=== PATIENT | female | born 1965 | race Hispanic/Latino ===

== ENCOUNTER 2020-04-04 18:54 | Inpatient (IN) | payer OTHER, MEDICARE ==
[2020-04-05] MEDS ORDERED: MELATONIN 5 MG TAB PO PRN (03:11)
[2020-04-05] MEDS: LORazepam 1 MG TAB PO SCH ×3 (03:16→21:24)
[2020-04-05] MEDS: LEVOTHYROXINE 25 MCG TAB PO SCH (06:30)
[2020-04-05] MEDS ORDERED: HYDROXYZINE 25 MG PO PRN (09:09)
--- NOTE | 2020-04-05 09:10 | Consultation ---
History of Present Illness - Reason for Consult Consult date: 04/05/20 - History of Present Illness 54-year-old female with past medical history of seizure disorder, hypothyroidism and bipolar disorder presents for inpatient psychiatric admission. Consultation is for medical management. Patient denies any recent seizure activity. No fever chills. No cough cold-like symptoms. No headache or visual disturbances. Past History Past Medical History: hypothyroidism, seizures Past Surgical History: No surgical history Social history: no significant social history Family history: no significant family history Medications and Allergies Allergies Allergy/AdvReac Type Severity Reaction Status Date / Time benztropine [From Cogentin] Allergy Unknown Verified 04/04/20 21:45 pseudoephedrine Allergy Unknown Verified 04/04/20 21:45 Antihistamines - Alkylamine AdvReac Unknown Verified 04/04/20 21:45 Home Medications Medication Instructions Recorded Confirmed Last Taken Type Pzigcr-[id number]-Koql 50-325-40 1 tab PO Q4H PRN 04/04/20 04/04/20 Unknown History Citracal + D Maximum Caplet 1 cap PO BID 04/04/20 04/04/20 Unknown History Docusate Sodium [Colace] 100 mg PO BID 04/04/20 04/04/20 Unknown History Ferrous Sulfate [Iron 325 MG] 325 mg PO DAILY 04/04/20 04/04/20 Unknown History LORazepam [Ativan] 1 mg PO BID 04/04/20 04/04/20 Unknown History Levothyroxine [Synthroid] 25 mcg PO QAM 04/04/20 04/04/20 Unknown History [place] Carbonate [[place] 450 mg PO DAILY 04/04/20 04/04/20 Unknown History Carbonate ER] Loratadine [Allergy] 10 mg PO DAILY 04/04/20 04/04/20 Unknown History Montelukast Sodium 10 mg PO DAILY 04/04/20 04/04/20 Unknown History Pantoprazole [Protonix TAB] 1 tab PO DAILY 04/04/20 04/04/20 Unknown History QUEtiapine [SEROquel] 200 mg PO HS 04/04/20 04/04/20 Unknown History Riboflavin (Vitamin B2) 400 mg PO DAILY 04/04/20 04/04/20 Unknown History SUMAtriptan [Imitrex] 5 mg NS UNK 04/04/20 04/04/20 Unknown History Temazepam [Restoril] 1 cap PO HS PRN 04/04/20 04/04/20 Unknown History Trimethoprim 100 mg PO Q48HR 04/04/20 04/04/20 Unknown History Zolpidem [Ambien] 10 mg PO QHS 04/04/20 04/04/20 Unknown History hydrOXYzine 25 mg PO Q6H PRN 04/04/20 04/04/20 Unknown History Active Meds: Active Medications Ferrous Sulfate (Feosol) 325 mg PO QDAY [facility] Levothyroxine Sodium (Synthroid) 25 mcg PO DAILY@0600 [facility] Last Admin: 04/05/20 06:30 Dose: 25 mcg Documented by: [place] Carbonate (Lithobid Er) 450 mg PO DAILY [facility] Lorazepam (Ativan) 1 mg PO BID [facility] Last Admin: 04/05/20 03:16 Dose: 1 mg Documented by: Melatonin (Melatonin) 5 mg PO QHS PRN PRN Reason: Sleep Review of Systems All systems: negative Exam - Constitutional Vitals: Temp Pulse Resp BP Pulse Ox 98.3 F 96 H 18 134/94 100 04/04/20 23:48 04/04/20 23:48 04/04/20 23:48 04/04/20 23:48 04/04/20 23:48 General appearance: Present: no acute distress, well-nourished - EENT Eyes: Present: PERRL ENT: hearing intact, clear oral mucosa - Neck Neck: Present: supple, normal ROM - Respiratory Respiratory effort: normal Respiratory: bilateral: CTA - Cardiovascular Heart Sounds: Present: S1 & S2. Absent: rub, click - Extremities Extremities: pulses symmetrical, No edema Peripheral Pulses: within normal limits - Abdominal General gastrointestinal: Present: soft, non-tender, non-distended, normal bowel sounds Female genitourinary: Present: normal - Integumentary Integumentary: Present: clear, warm, dry - Musculoskeletal Musculoskeletal: gait normal, strength equal bilaterally - Psychiatric Psychiatric: appropriate mood/affect, intact judgment & insight - Neurologic Neurologic: CNII-XII intact, moves all extremities Assessment and Plan Bipolar disorder. Per psychiatry. Seizure disorder. Continue AEDs and seizure precautions. Hypothyroidism. Check TSH and continue Synthroid
[2020-04-05] MEDS: LITHIUM CARBONATE ER 450 MG TAB PO SCH (09:25)
[2020-04-05] MEDS: FERROUS SULFATE 325 MG TAB PO SCH (09:25)
[2020-04-05] MEDS: DOCUSATE SODIUM 100 MG CAP PO SCH ×2 (09:27→21:24)
--- NOTE | 2020-04-05 09:36 | History and Physical Report ---
GP History & Physical - History of Present Illness Date of admission: 04/04/20 Date of Examination: 04/05/20 Reason for Admission: Impaired reality testing History of Present Illness: Tori Huntley is a 54y/o female patient who was admitted [facility] for manic state per admission note. I attempted to interview the patient this morning, she is in the dayroom awake. She makes poor eye contact. She is nonsensical, and could not connect her thoughts. When attempting to assess the patient's orientation she laughs out loud, and says, "hello" as if she is answering a telephone. She is responding to internal stimuli. She is talking and laughing out loud. The patient could not be engaged in the interview. PAST PSYCHIATRIC HISTORY: Unable to obtain PAST MEDICAL HISTORY: None reported Family Psychiatric History: None reported or documented SOCIAL HISTORY Unable to obtain REVIEW OF SYSTEMS Unable to obtain MENTAL STATUS EXAMINATION Unable to adequately assess Assessment Bipolar Disorder, Current Episode Manic, with Psychotic Features Treatment Plan Patient will be admitted for inpatient psychiatric evaluation, medication adjustment and close monitoring The patient's behavior, mood, sleep and appetite will be closely monitored. Patient will be enrolled in individual and group therapeutic sessions and encouraged to attend. Patient will be provided with a safe and structured environment. Patient's physical health needs will be addressed by the Hospitalist. Hospitalist Consulted Labs including CBC, CMP, Lipid profile and Hemoglobin A1C ordered Social Assessment will be completed and the Vacuum Applicator Operator will work with patient and family to ensure a suitable and safe disposition Medication adjustment will be made as clinically indicated Olanzapine 5mg po daily Olanzapine 2.5mg po q4h prn agitation Usual Wellness Congregation/Preservation: - Start Trazodone 50 mg po QHS - Start Melatonin 5 mg po QHS to promote circadian rhythm The patient agreed on the treatment plan, understood the risk, benefit, alternative treatment, potential consequence of no treatment, and gave informed consent. This certifies that Tori Huntley is a 54y/o female who was admitted for Bipolar Disorder, with Psychotic Features Estimated period of time patient will need to remain in the hospital: (7) Outpatient treatment upon discharge Legal Status: Voluntary Reaction to Hospitalization: Accepting Medications and Allergies Allergies Allergy/AdvReac Type Severity Reaction Status Date / Time benztropine [From Cogentin] Allergy Unknown Verified 04/04/20 21:45 pseudoephedrine Allergy Unknown Verified 04/04/20 21:45 Antihistamines - Alkylamine AdvReac Unknown Verified 04/04/20 21:45 Home Medications Medication Instructions Recorded Confirmed Last Taken Type Daonnj-Qtwkflzw-Sliq 50-325-40 1 tab PO Q4H PRN 04/04/20 04/04/20 Unknown History Citracal + D Maximum Caplet 1 cap PO BID 04/04/20 04/04/20 Unknown History Docusate Sodium [Colace] 100 mg PO BID 04/04/20 04/04/20 Unknown History Ferrous Sulfate [Iron 325 MG] 325 mg PO DAILY 04/04/20 04/04/20 Unknown History LORazepam [Ativan] 1 mg PO BID 04/04/20 04/04/20 Unknown History Levothyroxine [Synthroid] 25 mcg PO QAM 04/04/20 04/04/20 Unknown History [place] Carbonate [[place] 450 mg PO DAILY 04/04/20 04/04/20 Unknown History Carbonate ER] Loratadine [Allergy] 10 mg PO DAILY 04/04/20 04/04/20 Unknown History Montelukast Sodium 10 mg PO DAILY 04/04/20 04/04/20 Unknown History Pantoprazole [Protonix TAB] 1 tab PO DAILY 04/04/20 04/04/20 Unknown History QUEtiapine [SEROquel] 200 mg PO HS 04/04/20 04/04/20 Unknown History Riboflavin (Vitamin B2) 400 mg PO DAILY 04/04/20 04/04/20 Unknown History SUMAtriptan [Imitrex] 5 mg NS UNK 04/04/20 04/04/20 Unknown History Temazepam [Restoril] 1 cap PO HS PRN 04/04/20 04/04/20 Unknown History Trimethoprim 100 mg PO Q48HR 04/04/20 04/04/20 Unknown History Zolpidem [Ambien] 10 mg PO QHS 04/04/20 04/04/20 Unknown History hydrOXYzine 25 mg PO Q6H PRN 04/04/20 04/04/20 Unknown History Active Meds: Active Medications Docusate Sodium (Colace) 100 mg PO BID [facility] Last Admin: 04/05/20 09:27 Dose: 100 mg Documented by: Ferrous Sulfate (Feosol) 325 mg PO DAILY [facility] Last Admin: 04/05/20 09:25 Dose: 325 mg Documented by: Levothyroxine Sodium (Synthroid) 25 mcg PO DAILY@0600 [facility] Last Admin: 04/05/20 06:30 Dose: 25 mcg Documented by: [place] Carbonate (Lithobid Er) 450 mg PO DAILY [facility] Last Admin: 04/05/20 09:25 Dose: 450 mg Documented by: Lorazepam (Ativan) 1 mg PO BID [facility] Last Admin: 04/05/20 09:25 Dose: 1 mg Documented by: Melatonin (Melatonin) 5 mg PO QHS PRN PRN Reason: Sleep Miscellaneous Medication (Hydroxyzine) 25 mg PO Q6H PRN PRN Reason: Anxiety Miscellaneous Medication (Loratadine [Allergy]) 10 mg PO DAILY [facility] Miscellaneous Medication (Montelukast Sodium) 10 mg PO DAILY [facility] Miscellaneous Medication (Zolpidem) 10 mg PO QHS [facility] Pantoprazole Sodium (Protonix) 40 mg PO DAILY [facility] Temazepam (Restoril) 15 mg PO HS PRN PRN Reason: Sleep Results - Results Labs/Vitals: Laboratory Last Values POC Glucose 97 (70-105) 04/05/20 07:00 Last Vital Signs Temp 98.0 F 04/05/20 07:46 Pulse 93 H 04/05/20 07:46 Resp 18 04/05/20 07:46 BP 122/78 04/05/20 07:46 Pulse Ox 98 04/05/20 07:46 Physical Examination - Constitutional Vitals: Vital Signs Temp Pulse Resp BP Pulse Ox 98.0 F 93 H 18 122/78 98 04/05/20 07:46 04/05/20 07:46 04/05/20 07:46 04/05/20 07:46 04/05/20 07:46 Temperature -Last 24 Hours Temperature 98.0 F Temperature 98.3 F Mental Status Exam - Vital signs Last Vital Signs Temp 98.0 F 04/05/20 07:46 Pulse 93 H 04/05/20 07:46 Resp 18 04/05/20 07:46 BP 122/78 04/05/20 07:46 Pulse Ox 98 04/05/20 07:46 Physician Certification - Certification Statement Physician Certification Statement: This is an acknowledgement statement that TORI HUNTLEY is a 54 year old F who requires inpatient psychiatric admission for treatment which could reasonably be expected to improve the patient's condition for Estimated period of time patient will need to remain in the hospital: [ ] Plan for post-hospital care: [ ]
[2020-04-05] MEDS ORDERED: LEVOTHYROXINE 25 MCG TAB PO SCH (10:00)
[2020-04-05] MEDS ORDERED: FERROUS SULFATE 325 MG TAB PO SCH (10:00)
[2020-04-05] MEDS ORDERED: LORazepam 1 MG TAB PO SCH (10:00)
[2020-04-05] MEDS ORDERED: NON-FORMULARY EACH (Montelukast Sodium 10 MG) PO SCH (10:00)
[2020-04-05] MEDS ORDERED: [UNRECOGNIZED DRUG - REMARK] PO SCH (10:00)
[2020-04-05] MEDS: PANTOPRAZOLE 40 MG TAB PO SCH (10:57)
[2020-04-05] MEDS ORDERED: CETIRIZINE 10 MG TAB PO SCH (12:00)
[2020-04-05] MEDS ORDERED: hydrOXYzine PAMOATE 25 MG CAP PO PRN (12:00)
[2020-04-05] MEDS: MONTELUKAST 10 MG TAB PO SCH (13:15)
[2020-04-05] MEDS: ZOLPIDEM 5 MG TAB PO SCH (21:24)
[2020-04-05 21:34] LABS: Basophils % (Auto) 0.3 % (0.0-1.8); Eosinophils # (Auto) 0.2 K/mm3 (0.0-0.4); Eosinophils % (Auto) 2.2 % (0.0-4.3); Hematocrit 43.8 % (30.3-42.9); Hemoglobin 14.5 gm/dl (10.1-14.3); Lymphocytes # (Auto) 1.5 K/mm3 (1.2-5.4); Lymphocytes % (Auto) 17.6 % (13.4-35.0); Mean Corpuscular HGB Conc 33 % (30-34); Mean Corpuscular Volume 93 fl (79-97); Monocytes # (Auto) 0.6 K/mm3 (0.0-0.8); Monocytes % (Auto) 7.5 % (0.0-7.3); Platelet Count 210 K/mm3 (140-440); Red Cell Distribution Width 13.9 % (13.2-15.2)
[2020-04-05 21:48] LABS: Alanine Aminotransferase 18 units/L (7-56); Albumin 4.3 g/dL (3.9-5); BUN/Creatinine Ratio 8; Blood Urea Nitrogen 7 mg/dL (7-17); Calcium 10.8 mg/dL (8.4-10.2); Chol/HDL Ratio 2.25 %; HDL Cholesterol 79 mg/dL (40-59); Hemolysis Index 3; LDL Cholesterol,Direct 85 mg/dL (50-130)
[2020-04-05] MEDS ORDERED: TEMAZEPAM 15 MG CAP PO PRN (22:00)
[2020-04-05] MEDS ORDERED: NON-FORMULARY EACH (Zolpidem 10 MG) PO SCH (22:00)
[2020-04-06] MEDS: LEVOTHYROXINE 25 MCG TAB PO SCH (06:20)
--- NOTE | 2020-04-06 07:23 | Progress Note ---
Subjective Date of service: 04/06/20 Principal diagnosis: BIPOLAR 1 DISORDER MANIC Subjective Comment: Per Psych Nurse: Pt is alert to self, compliant with medication. Pt is easily irritable,she is very talkative, hyperverbal, very loud and laughing to herself, but re-directable and no aggressive behaviour. Prn vistaril 25mg po given for anxiety with little effect No acute distress, will continue to monitor. Psych Progress HPI Patient seen this morning, talking to self and responding to internal stimuli, kept talking about mummy, in a repetitive manner. Collateral: Spoke with Philippe, says has hx of Bipolar, tunnel vision with poor sights, has been having some declining mental or poor memory for a while now, sometimes talks to hersellf watching TV, sometimes needs assistance doing a few things but mostly independent in making her own meals and such. Reports she normally sees a psychiatrist outpt but his on vacation. Reason for continuing inpatient treatment: Patient lithium levels sub therapeutic, responding to internal stimuli. will restart home meds and observe. MENTAL STATUS EXAMINATION General Appearance and Behavior: Age appropriate, fair hygiene, wearing appropriate clothes, poor eye contact, uncooperative with questioning. Cooperation: Isolative Psychomotor Behavior: Psychomotor agitation Mood: na Affect and affective range: Labile Thought Process: Tangential, Illogical, and Loose associations Thought Content: Echolalia, obsessions. Speech: confused, and pressured. Intellectual Functioning: Fair Suicidal Ideation: na Homicidal Ideation: na Impulse Control: Impaired Insight and Judgment:Impaired Memory: n/a Attention:, Distractible, Divided attention impaired Orientation: Alert, confused Treatment Plan: Assessment and Plan - Patient Problems (1) Bipolar 1 disorder Current Visit: Yes Status: Acute Home meds restarted, lithium levels to be rechecked in a week. Patient will be admitted for inpatient psychiatric evaluation, medication adjustment and close monitoring The patient's behavior, mood, sleep and appetite will be closely monitored. Patient will be enrolled in individual and group therapeutic sessions and e ncouraged to attend. Patient will be provided with a safe and structured environment. Patient's physical health needs will be addressed by the Hospitalist. Hospitalist Consulted Labs including CBC, CMP, Lipid profile and Hemoglobin A1C ordered Social Assessment will be completed and the Can Line Examiner will work with patient and family to ensure a suitable and safe disposition Medication adjustment will be made as clinically indicated Olanzapine 5mg po daily Olanzapine 2.5mg po q4h prn agitation Usual Wellness Shinto/Preservation: - Start Trazodone 50 mg po QHS - Start Melatonin 5 mg po QHS to promote circadian rhythm The patient agreed on the treatment plan, understood the risk, benefit, alternative treatment, potential consequence of no treatment, and gave informed consent. Physician Certification - Certification Statement Physician Certification Statement: This is an acknowledgement statement that JUNE HUNTLEY is a 54 year old F who requires inpatient psychiatric admission for treatment which could reasonably be expected to improve the patient's condition for Estimated period of time patient will need to remain in the hospital: [6 ] Plan for post-hospital care: [ outpt] Assessment and Plan - Patient Problems (1) Bipolar 1 disorder Current Visit: Yes Status: Acute Medications and Allergies Allergies Allergy/AdvReac Type Severity Reaction Status Date / Time benztropine [From Cogentin] Allergy Unknown Verified 04/04/20 21:45 pseudoephedrine Allergy Unknown Verified 04/04/20 21:45 Antihistamines - Alkylamine AdvReac Unknown Verified 04/04/20 21:45 Home Medications Medication Instructions Recorded Confirmed Last Taken Type Eetpsk-Khwsceaa-Dlkm 50-325-40 1 tab PO Q4H PRN 04/04/20 04/04/20 Unknown History Citracal + D Maximum Caplet 1 cap PO BID 04/04/20 04/04/20 Unknown History Docusate Sodium [Colace] 100 mg PO BID 04/04/20 04/04/20 Unknown History Ferrous Sulfate [Iron 325 MG] 325 mg PO DAILY 04/04/20 04/04/20 Unknown History LORazepam [Ativan] 1 mg PO BID 04/04/20 04/04/20 Unknown History Levothyroxine [Synthroid] 25 mcg PO QAM 04/04/20 04/04/20 Unknown History [place] Carbonate [[place] 450 mg PO DAILY 04/04/20 04/04/20 Unknown History Carbonate ER] Loratadine [Allergy] 10 mg PO DAILY 04/04/20 04/04/20 Unknown History Montelukast Sodium 10 mg PO DAILY 04/04/20 04/04/20 Unknown History Pantoprazole [Protonix TAB] 1 tab PO DAILY 04/04/20 04/04/20 Unknown History QUEtiapine [SEROquel] 200 mg PO HS 04/04/20 04/04/20 Unknown History Riboflavin (Vitamin B2) 400 mg PO DAILY 04/04/20 04/04/20 Unknown History SUMAtriptan [Imitrex] 5 mg NS UNK 04/04/20 04/04/20 Unknown History Temazepam [Restoril] 1 cap PO HS PRN 04/04/20 04/04/20 Unknown History Trimethoprim 100 mg PO Q48HR 04/04/20 04/04/20 Unknown History Zolpidem [Ambien] 10 mg PO QHS 04/04/20 04/04/20 Unknown History hydrOXYzine 25 mg PO Q6H PRN 04/04/20 04/04/20 Unknown History Active Meds: Active Medications Cetirizine HCl (Cetirizine) 10 mg PO DAILY [facility] Last Admin: 04/05/20 13:15 Dose: 10 mg Documented by: Docusate Sodium (Colace) 100 mg PO BID [facility] Last Admin: 04/05/20 21:24 Dose: 100 mg Documented by: Ferrous Sulfate (Feosol) 325 mg PO DAILY [facility] Last Admin: 04/05/20 09:25 Dose: 325 mg Documented by: Hydroxyzine Pamoate (Vistaril) 25 mg PO Q6HR PRN PRN Reason: Anxiety Last Admin: 04/05/20 15:19 Dose: 25 mg Documented by: Levothyroxine Sodium (Synthroid) 25 mcg PO DAILY@0600 [facility] Last Admin: 04/05/20 06:30 Dose: 25 mcg Documented by: [place] Carbonate (Lithobid Er) 450 mg PO DAILY [facility] Last Admin: 04/05/20 09:25 Dose: 450 mg Documented by: Lorazepam (Ativan) 1 mg PO BID [facility] Last Admin: 04/05/20 21:24 Dose: 1 mg Documented by: Melatonin (Melatonin) 5 mg PO QHS PRN PRN Reason: Sleep Montelukast Sodium (Singulair) 10 mg PO DAILY [facility] Last Admin: 04/05/20 13:15 Dose: 10 mg Documented by: Olanzapine (Zyprexa) 5 mg PO QDAY [facility] Last Admin: 04/05/20 10:57 Dose: 5 mg Documented by: Olanzapine (Zyprexa) 2.5 mg PO Q4HR PRN PRN Reason: Agitation Last Admin: 04/05/20 20:03 Dose: 2.5 mg Documented by: Pantoprazole Sodium (Protonix) 40 mg PO DAILY [facility] Last Admin: 04/05/20 10:57 Dose: 40 mg Documented by: Temazepam (Restoril) 15 mg PO HS PRN PRN Reason: Sleep Zolpidem Tartrate (Ambien) 10 mg PO QHS [facility] Last Admin: 04/05/20 21:24 Dose: 10 mg Documented by: Results - Results Labs/Vitals: Laboratory Last Values WBC 8.3 K/mm3 (4.5-11.0) 04/05/20 21:14 RBC 4.70 M/mm3 (3.65-5.03) 04/05/20 21:14 Hgb 14.5 gm/dl (10.1-14.3) H 04/05/20 21:14 Hct 43.8 % (30.3-42.9) H 04/05/20 21:14 MCV 93 fl (79-97) 04/05/20 21:14 MCH 31 pg (28-32) 04/05/20 21:14 MCHC 33 % (30-34) 04/05/20 21:14 RDW 13.9 % (13.2-15.2) 04/05/20 21:14 Plt Count 210 K/mm3 (140-440) 04/05/20 21:14 Lymph % (Auto) 17.6 % (13.4-35.0) 04/05/20 21:14 [place] % (Auto) 7.5 % (0.0-7.3) H 04/05/20 21:14 Eos % (Auto) 2.2 % (0.0-4.3) 04/05/20 21:14 Baso % (Auto) 0.3 % (0.0-1.8) 04/05/20 21:14 Lymph # 1.5 K/mm3 (1.2-5.4) 04/05/20 21:14 [place] # 0.6 K/mm3 (0.0-0.8) 04/05/20 21:14 Eos # 0.2 K/mm3 (0.0-0.4) 04/05/20 21:14 Baso # 0.0 K/mm3 (0.0-0.1) 04/05/20 21:14 Seg Neutrophils % 72.4 % (40.0-70.0) H 04/05/20 21:14 Seg Neutrophils # 6.0 K/mm3 (1.8-7.7) 04/05/20 21:14 Sodium 141 mmol/L (137-145) 04/05/20 21:14 Potassium 3.8 mmol/L (3.6-5.0) 04/05/20 21:14 Chloride 103.1 mmol/L (98-107) 04/05/20 21:14 Carbon Dioxide 28 mmol/L (22-30) 04/05/20 21:14 Anion Gap 14 mmol/L 04/05/20 21:14 BUN 7 mg/dL (7-17) 04/05/20 21:14 Creatinine 0.9 mg/dL (0.7-1.2) 04/05/20 21:14 Estimated GFR > 60 ml/min 04/05/20 21:14 BUN/Creatinine Ratio 8 % 04/05/20 21:14 Glucose 121 mg/dL (65-100) H 04/05/20 21:14 POC Glucose 97 (70-105) 04/05/20 07:00 Hemoglobin A1c 4.6 % (4-6) 04/05/20 21:14 Calcium 10.8 mg/dL (8.4-10.2) H 04/05/20 21:14 Total Bilirubin 0.40 mg/dL (0.1-1.2) 04/05/20 21:14 AST 15 units/L (5-40) 04/05/20 21:14 ALT 18 units/L (7-56) 04/05/20 21:14 Alkaline Phosphatase 110 units/L (35-129) 04/05/20 21:14 Total Protein 7.1 g/dL (6.3-8.2) 04/05/20 21:14 Albumin 4.3 g/dL (3.9-5) 04/05/20 21:14 Albumin/Globulin Ratio 1.5 % 04/05/20 21:14 Triglycerides 113 mg/dL (2-149) 04/05/20 21:14 Cholesterol 178 mg/dL (50-199) 04/05/20 21:14 LDL Cholesterol Direct 85 mg/dL (50-130) 04/05/20 21:14 HDL Cholesterol 79 mg/dL (40-59) H 04/05/20 21:14 Cholesterol/HDL Ratio 2.25 % 04/05/20 21:14 TSH 2.490 mlU/mL (0.270-4.200) 04/05/20 21:14 Last Vital Signs Temp 99.4 F 04/05/20 20:37 Pulse 98 H 04/05/20 20:37 Resp 18 04/05/20 20:37 BP 128/81 04/05/20 20:37 Pulse Ox 98 04/05/20 20:37
[2020-04-06] MEDS ORDERED: ZIPRASIDONE MESYLATE 20 MG VIAL IM ONE (10:00)
[2020-04-06] MEDS ORDERED: LORazepam 2 MG/ML VIAL IM ONE (10:00)
[2020-04-06] MEDS ORDERED: WATER FOR INJ Sterile (PF) 10 ML IM ONE (10:00)
[2020-04-06] MEDS: DOCUSATE SODIUM 100 MG CAP PO SCH ×2 (10:57→21:55)
[2020-04-06] MEDS: LORazepam 1 MG TAB PO SCH ×2 (10:57→21:53)
[2020-04-06] MEDS: PANTOPRAZOLE 40 MG TAB PO SCH (10:57)
[2020-04-06] MEDS: LITHIUM CARBONATE ER 450 MG TAB PO SCH (10:57)
[2020-04-06] MEDS: FERROUS SULFATE 325 MG TAB PO SCH (10:58)
[2020-04-06] MEDS: MONTELUKAST 10 MG TAB PO SCH (10:58)
[2020-04-06] MEDS: ZOLPIDEM 5 MG TAB PO SCH (21:52)
[2020-04-06] MEDS ORDERED: QUEtiapine 200 MG TAB PO SCH (22:00)
[2020-04-06] MEDS ORDERED: QUEtiapine 25 MG TAB PO SCH (22:00)
[2020-04-07] MEDS: LEVOTHYROXINE 25 MCG TAB PO SCH (05:40)
--- NOTE | 2020-04-07 07:20 | Progress Note ---
Subjective Date of service: 04/07/20 Principal diagnosis: BIPOLAR 1 DISORDER MANIC Subjective Comment: Per Psych Nurse: Patient was restless with increased activity this evening. Her thoughts present as broken and she continues talking to herself. Her affect is anxious and mood fearful. Patient is given supportive care and reassurance. She was medication compliant and resistant with evening ADL care. Will continue to monitor patient for safety. Psych Progress HPI Patient is still manic, tangential, psychomotor agitation, talking to self and throwing things arround. Collateral: Spoke with Mum, reports pt therapeutic level usually between .4 and .5 for her augmented with other medicatons. Reports pt first manic episode is at age 19. Reason for continuing inpatient treatment: Patient lithium levels sub therapeutic, responding to internal stimuli. will restart home meds and observe. MENTAL STATUS EXAMINATION General Appearance and Behavior: Age appropriate, fair hygiene, wearing appropriate clothes, poor eye contact, uncooperative with questioning. Cooperation: Isolative Psychomotor Behavior: Psychomotor agitation Mood: na Affect and affective range: Labile Thought Process: Tangential, Illogical, and Loose associations Thought Content: Echolalia, obsessions. Speech: confused, and pressured. Intellectual Functioning: Fair Suicidal Ideation: na Homicidal Ideation: na Impulse Control: Impaired Insight and Judgment:Impaired Memory: n/a Attention:, Distractible, Divided attention impaired Orientation: Alert, confused Treatment Plan: Assessment and Plan - Patient Problems (1) Bipolar 1 disorder Current Visit: Yes Status: Acute Home meds restarted, lithium levels to be rechecked in a week. Patient will be admitted for inpatient psychiatric evaluation, medication adjustment and close monitoring The patient's behavior, mood, sleep and appetite will be closely monitored. Patient will be enrolled in individual and group therapeutic sessions and encouraged to attend. Patient will be provided with a safe and structured environment. Patient's physical health needs will be addressed by the Hospitalist. Hospitalist Consulted Labs including CBC, CMP, Lipid profile and Hemoglobin A1C ordered Social Assessment will be completed and the Unemployment Inspector will work with patient and family to ensure a suitable and safe disposition Medication adjustment will be made as clinically indicated Olanzapine 5mg po daily Olanzapine 2.5mg po q4h prn agitation Usual Wellness Zoroastrian/Preservation: - Start Trazodone 50 mg po QHS - Start Melatonin 5 mg po QHS to promote circadian rhythm The patient agreed on the treatment plan, understood the risk, benefit, alternative treatment, potential consequence of no treatment, and gave informed consent. Physician Certification - Certification Statement Physician Certification Statement: This is an acknowledgement statement that JUNE HUNTLEY is a 54 year old F who requires inpatient psychiatric admission for treatment which could reasonably be expected to improve the patient's condition for Estimated period of time patient will need to remain in the hospital: [5] Plan for post-hospital care: [ outpt] Assessment and Plan - Patient Problems (1) Bipolar 1 disorder Current Visit: Yes Status: Acute Medications and Allergies Allergies Allergy/AdvReac Type Severity Reaction Status Date / Time benztropine [From Cogentin] Allergy Unknown Verified 04/04/20 21:45 pseudoephedrine Allergy Unknown Verified 04/04/20 21:45 Antihistamines - Alkylamine AdvReac Unknown Verified 04/04/20 21:45 Home Medications Medication Instructions Recorded Confirmed Last Taken Type Ezstjm-Hnjpkzqc-Geyv 50-325-40 1 tab PO Q4H PRN 04/04/20 04/04/20 Unknown History Citracal + D Maximum Caplet 1 cap PO BID 04/04/20 04/04/20 Unknown History Docusate Sodium [Colace] 100 mg PO BID 04/04/20 04/04/20 Unknown History Ferrous Sulfate [Iron 325 MG] 325 mg PO DAILY 04/04/20 04/04/20 Unknown History LORazepam [Ativan] 1 mg PO BID 04/04/20 04/04/20 Unknown History Levothyroxine [Synthroid] 25 mcg PO QAM 04/04/20 04/04/20 Unknown History [place] Carbonate [[place] 450 mg PO DAILY 04/04/20 04/04/20 Unknown History Carbonate ER] Loratadine [Allergy] 10 mg PO DAILY 04/04/20 04/04/20 Unknown History Montelukast Sodium 10 mg PO DAILY 04/04/20 04/04/20 Unknown History Pantoprazole [Protonix TAB] 1 tab PO DAILY 04/04/20 04/04/20 Unknown History QUEtiapine [SEROquel] 200 mg PO HS 04/04/20 04/04/20 Unknown History Riboflavin (Vitamin B2) 400 mg PO DAILY 04/04/20 04/04/20 Unknown History SUMAtriptan [Imitrex] 5 mg NS UNK 04/04/20 04/04/20 Unknown History Temazepam [Restoril] 1 cap PO HS PRN 04/04/20 04/04/20 Unknown History Trimethoprim 100 mg PO Q48HR 04/04/20 04/04/20 Unknown History Zolpidem [Ambien] 10 mg PO QHS 04/04/20 04/04/20 Unknown History hydrOXYzine 25 mg PO Q6H PRN 04/04/20 04/04/20 Unknown History Active Meds: Active Medications Docusate Sodium (Colace) 100 mg PO BID [facility] Last Admin: 04/06/20 21:55 Dose: 100 mg Documented by: Ferrous Sulfate (Feosol) 325 mg PO DAILY [facility] Last Admin: 04/06/20 10:58 Dose: 325 mg Documented by: Hydroxyzine Pamoate (Vistaril) 25 mg PO Q6HR PRN PRN Reason: Anxiety Last Admin: 04/05/20 15:19 Dose: 25 mg Documented by: Levothyroxine Sodium (Synthroid) 25 mcg PO DAILY@0600 [facility] Last Admin: 04/07/20 05:40 Dose: 25 mcg Documented by: [place] Carbonate (Lithobid Er) 450 mg PO DAILY [facility] Last Admin: 04/06/20 10:57 Dose: 450 mg Documented by: Lorazepam (Ativan) 1 mg PO BID [facility] Last Admin: 04/06/20 21:53 Dose: 1 mg Documented by: Melatonin (Melatonin) 5 mg PO QHS PRN PRN Reason: Sleep Montelukast Sodium (Singulair) 10 mg PO DAILY [facility] Last Admin: 04/06/20 10:58 Dose: 10 mg Documented by: Olanzapine (Zyprexa) 2.5 mg PO Q4HR PRN PRN Reason: Agitation Last Admin: 04/05/20 20:03 Dose: 2.5 mg Documented by: Pantoprazole Sodium (Protonix) 40 mg PO DAILY [facility] Last Admin: 04/06/20 10:57 Dose: 40 mg Documented by: Quetiapine Fumarate (Seroquel) 200 mg PO QHS [facility] Last Admin: 04/06/20 21:54 Dose: 200 mg Documented by: Temazepam (Restoril) 15 mg PO HS PRN PRN Reason: Sleep Zolpidem Tartrate (Ambien) 10 mg PO QHS [facility] Last Admin: 04/06/20 21:52 Dose: 10 mg Documented by: Results - Results Labs/Vitals: Laboratory Last Values WBC 8.3 K/mm3 (4.5-11.0) 04/05/20 21:14 RBC 4.70 M/mm3 (3.65-5.03) 04/05/20 21:14 Hgb 14.5 gm/dl (10.1-14.3) H 04/05/20 21:14 Hct 43.8 % (30.3-42.9) H 04/05/20 21:14 MCV 93 fl (79-97) 04/05/20 21:14 MCH 31 pg (28-32) 04/05/20 21:14 MCHC 33 % (30-34) 04/05/20 21:14 RDW 13.9 % (13.2-15.2) 04/05/20 21:14 Plt Count 210 K/mm3 (140-440) 04/05/20 21:14 Lymph % (Auto) 17.6 % (13.4-35.0) 04/05/20 21:14 [place] % (Auto) 7.5 % (0.0-7.3) H 04/05/20 21:14 Eos % (Auto) 2.2 % (0.0-4.3) 04/05/20 21:14 Baso % (Auto) 0.3 % (0.0-1.8) 04/05/20 21:14 Lymph # 1.5 K/mm3 (1.2-5.4) 04/05/20 21:14 [place] # 0.6 K/mm3 (0.0-0.8) 04/05/20 21:14 Eos # 0.2 K/mm3 (0.0-0.4) 04/05/20 21:14 Baso # 0.0 K/mm3 (0.0-0.1) 04/05/20 21:14 Seg Neutrophils % 72.4 % (40.0-70.0) H 04/05/20 21:14 Seg Neutrophils # 6.0 K/mm3 (1.8-7.7) 04/05/20 21:14 Sodium 141 mmol/L (137-145) 04/05/20 21:14 Potassium 3.8 mmol/L (3.6-5.0) 04/05/20 21:14 Chloride 103.1 mmol/L (98-107) 04/05/20 21:14 Carbon Dioxide 28 mmol/L (22-30) 04/05/20 21:14 Anion Gap 14 mmol/L 04/05/20 21:14 BUN 7 mg/dL (7-17) 04/05/20 21:14 Creatinine 0.9 mg/dL (0.7-1.2) 04/05/20 21:14 Estimated GFR > 60 ml/min 04/05/20 21:14 BUN/Creatinine Ratio 8 % 04/05/20 21:14 Glucose 121 mg/dL (65-100) H 04/05/20 21:14 POC Glucose 97 (70-105) 04/05/20 07:00 Hemoglobin A1c 4.6 % (4-6) 04/05/20 21:14 Calcium 10.8 mg/dL (8.4-10.2) H 04/05/20 21:14 Total Bilirubin 0.40 mg/dL (0.1-1.2) 04/05/20 21:14 AST 15 units/L (5-40) 04/05/20 21:14 ALT 18 units/L (7-56) 04/05/20 21:14 Alkaline Phosphatase 110 units/L (35-129) 04/05/20 21:14 Total Protein 7.1 g/dL (6.3-8.2) 04/05/20 21:14 Albumin 4.3 g/dL (3.9-5) 04/05/20 21:14 Albumin/Globulin Ratio 1.5 % 04/05/20 21:14 Triglycerides 113 mg/dL (2-149) 04/05/20 21:14 Cholesterol 178 mg/dL (50-199) 04/05/20 21:14 LDL Cholesterol Direct 85 mg/dL (50-130) 04/05/20 21:14 HDL Cholesterol 79 mg/dL (40-59) H 04/05/20 21:14 Cholesterol/HDL Ratio 2.25 % 04/05/20 21:14 TSH 2.490 mlU/mL (0.270-4.200) 04/05/20 21:14 [place] 0.5 mmol/L (0.0-1.2) 04/06/20 07:48 Last Vital Signs Temp 98.2 F 04/06/20 19:21 Pulse 109 H 04/06/20 19:21 Resp 20 04/06/20 19:21 BP 126/86 04/06/20 19:21 Pulse Ox 96 04/06/20 19:21
[2020-04-07] MEDS: PANTOPRAZOLE 40 MG TAB PO SCH (09:26)
[2020-04-07] MEDS: FERROUS SULFATE 325 MG TAB PO SCH (09:26)
[2020-04-07] MEDS: DOCUSATE SODIUM 100 MG CAP PO SCH ×2 (09:26→21:46)
[2020-04-07] MEDS: MONTELUKAST 10 MG TAB PO SCH (09:26)
[2020-04-07] MEDS: LITHIUM CARBONATE ER 450 MG TAB PO SCH (09:26)
[2020-04-07] MEDS: LORazepam 1 MG TAB PO SCH ×2 (09:26→21:46)
[2020-04-07] MEDS ORDERED: ZIPRASIDONE MESYLATE 20 MG VIAL IM PRN (09:48)
[2020-04-07] MEDS ORDERED: LORazepam 2 MG/ML VIAL IM PRN (09:48)
[2020-04-07] MEDS: ZOLPIDEM 5 MG TAB PO SCH (21:46)
[2020-04-07] MEDS ORDERED: QUEtiapine 200 MG TAB PO SCH (22:00)
[2020-04-08] MEDS: LEVOTHYROXINE 25 MCG TAB PO SCH (05:53)
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
[2020-04-08] MEDS ORDERED: WATER FOR INJ Sterile (PF) 10 ML ONE (09:58)
[2020-04-08] MEDS: LORazepam 2 MG/ML VIAL IM PRN (10:06)
[2020-04-08] MEDS: ZIPRASIDONE MESYLATE 20 MG VIAL IM PRN (10:07)
[2020-04-08] MEDS: DOCUSATE SODIUM 100 MG CAP PO SCH ×2 (10:11→21:56)
[2020-04-08] MEDS: PANTOPRAZOLE 40 MG TAB PO SCH (10:11)
[2020-04-08] MEDS: LORazepam 1 MG TAB PO SCH ×2 (10:11→21:56)
[2020-04-08] MEDS: FERROUS SULFATE 325 MG TAB PO SCH (10:11)
[2020-04-08] MEDS: MONTELUKAST 10 MG TAB PO SCH (10:12)
[2020-04-08] MEDS: SUMAtriptan SUCCINATE 50 MG TAB PO PRN (10:12)
[2020-04-08] MEDS: LITHIUM CARBONATE ER 450 MG TAB PO SCH (10:12)
[2020-04-08] MEDS: QUEtiapine 200 MG TAB PO SCH (21:55)
[2020-04-08] MEDS: ZOLPIDEM 5 MG TAB PO SCH (21:56)
[2020-04-09] MEDS: LEVOTHYROXINE 25 MCG TAB PO SCH (05:45)
--- NOTE | 2020-04-09 07:20 | Progress Note ---
Subjective Date of service: 04/09/20 Principal diagnosis: BIPOLAR 1 DISORDER MANIC Subjective Comment: Per Psych Nurse: [id number] Pt. was very confused and disorganized in am, covering her face with blanket, sometimes throwing her hands in the air, requiring close monitoring. PRN Ativan and Geodon given IM at about 1011 am with good effect. Pt. less confuse this evening, pleasant, interacting with another pt and making some sense. Psych Progress HPI Patient seen this AM, her hair was packed and redressed in an appropriate manner, reviewed notes, nurses notes improvement in reduced disorganization. This AM, pt seen in activity in attempt to have her eat with other peers, Patient still exhibiting thought disorder, responds incoherently to question prompt but with less motor activity. Reason for continuing inpatient treatment: Mildly improved sense of well being this AM, with personal grooming of hair noticed. Pt still disorganized, incoherent and impaired with psychopathological interference as she is unable to apply meanings to question prompts and is tangential. Serquel was increased to 400mg yesterday, will continue to observe for mood stability and medication side effect tolerance. MENTAL STATUS EXAMINATION General Appearance and Behavior: Age appropriate, fair hygiene, wearing appropriate clothes, good eye contact, uncooperative with questioning. Cooperation: Isolative Psychomotor Behavior: Psychomotor agitation Mood: na Affect and affective range: Labile Thought Process: Tangential, Illogical, and Loose associations Thought Content: Illogical, obsessions. Speech: confused, and pressured. Intellectual Functioning: Fair Suicidal Ideation: na Homicidal Ideation: na Impulse Control: Impaired Insight and Judgment:Impaired Memory: n/a Attention:, Distractible, Divided attention impaired Orientation: Alert, confused Treatment Plan: Assessment and Plan - Patient Problems (1) Bipolar 1 disorder Current Visit: Yes Status: Acute Seroquel increased to 400 mg Home meds restarted, lithium levels to be rechecked in a week. Patient will be admitted for inpatient psychiatric evaluation, medication adjustment and close monitoring The patient's behavior, mood, sleep and appetite will be closely monitored. Patient will be enrolled in individual and group therapeutic sessions and encouraged to attend. Patient will be provided with a safe and structured environment. Patient's physical health needs will be addressed by the Hospitalist. Hospitalist Consulted Labs including CBC, CMP, Lipid profile and Hemoglobin A1C ordered Social Assessment will be completed and the Base Draw Operator will work with patient and family to ensure a suitable and safe disposition Medication adjustment will be made as clinically indicated Usual Wellness Islam/Preservation: - Start Trazodone 50 mg po QHS - Start Melatonin 5 mg po QHS to promote circadian rhythm The patient agreed on the treatment plan, understood the risk, benefit, alternative treatment, potential consequence of no treatment, and gave informed consent. Physician Certification - Certification Statement Physician Certification Statement: This is an acknowledgement statement that JUNE HUNTLEY is a 54 year old F who requires inpatient psychiatric admission for treatment which could reasonably be expected to improve the patient's condition for Estimated period of time patient will need to remain in the hospital: [4] Plan for post-hospital care: [outpt] Assessment and Plan - Patient Problems (1) Bipolar 1 disorder Current Visit: Yes Status: Acute Medications and Allergies Allergies Allergy/AdvReac Type Severity Reaction Status Date / Time benztropine [From Cogentin] Allergy Unknown Verified 04/04/20 21:45 pseudoephedrine Allergy Unknown Verified 04/04/20 21:45 Antihistamines - Alkylamine AdvReac Unknown Verified 04/04/20 21:45 Home Medications Medication Instructions Recorded Confirmed Last Taken Type [id number]-[id number] 50-325-40 1 tab PO Q4H PRN 04/04/20 04/04/20 Unknown History Citracal + D Maximum Caplet 1 cap PO BID 04/04/20 04/04/20 Unknown History Docusate Sodium [Colace] 100 mg PO BID 04/04/20 04/04/20 Unknown History Ferrous Sulfate [Iron 325 MG] 325 mg PO DAILY 04/04/20 04/04/20 Unknown History LORazepam [Ativan] 1 mg PO BID 04/04/20 04/04/20 Unknown History Levothyroxine [Synthroid] 25 mcg PO QAM 04/04/20 04/04/20 Unknown History [place] Carbonate [[place] 450 mg PO DAILY 04/04/20 04/04/20 Unknown History Carbonate ER] Loratadine [Allergy] 10 mg PO DAILY 04/04/20 04/04/20 Unknown History Montelukast Sodium 10 mg PO DAILY 04/04/20 04/04/20 Unknown History Pantoprazole [Protonix TAB] 1 tab PO DAILY 04/04/20 04/04/20 Unknown History QUEtiapine [SEROquel] 200 mg PO HS 04/04/20 04/04/20 Unknown History Riboflavin (Vitamin B2) 400 mg PO DAILY 04/04/20 04/04/20 Unknown History SUMAtriptan [Imitrex] 5 mg NS UNK 04/04/20 04/04/20 Unknown History Temazepam [Restoril] 1 cap PO HS PRN 04/04/20 04/04/20 Unknown History Trimethoprim 100 mg PO Q48HR 04/04/20 04/04/20 Unknown History Zolpidem [Ambien] 10 mg PO QHS 04/04/20 04/04/20 Unknown History hydrOXYzine 25 mg PO Q6H PRN 04/04/20 04/04/20 Unknown History Active Meds: Active Medications Docusate Sodium (Colace) 100 mg PO BID [facility] Last Admin: 04/08/20 21:56 Dose: 100 mg Documented by: Ferrous Sulfate (Feosol) 325 mg PO DAILY [facility] Last Admin: 04/08/20 10:11 Dose: 325 mg Documented by: Hydroxyzine Pamoate (Vistaril) 25 mg PO Q6HR PRN PRN Reason: Anxiety Last Admin: 04/05/20 15:19 Dose: 25 mg Documented by: Levothyroxine Sodium (Synthroid) 25 mcg PO DAILY@0600 [facility] Last Admin: 04/09/20 05:45 Dose: 25 mcg Documented by: [place] Carbonate (Lithobid Er) 450 mg PO DAILY [facility] Last Admin: 04/08/20 10:12 Dose: 450 mg Documented by: Lorazepam (Ativan) 1 mg PO BID [facility] Last Admin: 04/08/20 21:56 Dose: 1 mg Documented by: Lorazepam (Ativan) 1 mg IM Q4HR PRN PRN Reason: Agitation Last Admin: 04/08/20 10:06 Dose: 1 mg Documented by: Melatonin (Melatonin) 5 mg PO QHS PRN PRN Reason: Sleep Montelukast Sodium (Singulair) 10 mg PO DAILY [facility] Last Admin: 04/08/20 10:12 Dose: 10 mg Documented by: Pantoprazole Sodium (Protonix) 40 mg PO DAILY [facility] Last Admin: 04/08/20 10:11 Dose: 40 mg Documented by: Quetiapine Fumarate (Seroquel) 400 mg PO QHS [facility] Last Admin: 04/08/20 21:55 Dose: 400 mg Documented by: Sumatriptan Succinate (Imitrex) 50 mg PO Q2H PRN PRN Reason: Migraine Headache Last Admin: 04/08/20 10:12 Dose: 50 mg Documented by: Temazepam (Restoril) 15 mg PO HS PRN PRN Reason: Sleep Ziprasidone (Geodon) 15 mg IM Q4H PRN PRN Reason: Agitation Last Admin: 04/08/20 10:07 Dose: 15 mg Documented by: Zolpidem Tartrate (Ambien) 10 mg PO QHS [facility] Last Admin: 04/08/20 21:56 Dose: 10 mg Documented by: Results - Results Labs/Vitals: Laboratory Last Values WBC 8.3 K/mm3 (4.5-11.0) 04/05/20 21:14 RBC 4.70 M/mm3 (3.65-5.03) 04/05/20 21:14 Hgb 14.5 gm/dl (10.1-14.3) H 04/05/20 21:14 Hct 43.8 % (30.3-42.9) H 04/05/20 21:14 MCV 93 fl (79-97) 04/05/20 21:14 MCH 31 pg (28-32) 04/05/20 21:14 MCHC 33 % (30-34) 04/05/20 21:14 RDW 13.9 % (13.2-15.2) 04/05/20 21:14 Plt Count 210 K/mm3 (140-440) 04/05/20 21:14 Lymph % (Auto) 17.6 % (13.4-35.0) 04/05/20 21:14 [place] % (Auto) 7.5 % (0.0-7.3) H 04/05/20 21:14 Eos % (Auto) 2.2 % (0.0-4.3) 04/05/20 21:14 Baso % (Auto) 0.3 % (0.0-1.8) 04/05/20 21:14 Lymph # 1.5 K/mm3 (1.2-5.4) 04/05/20 21:14 [place] # 0.6 K/mm3 (0.0-0.8) 04/05/20 21:14 Eos # 0.2 K/mm3 (0.0-0.4) 04/05/20 21:14 Baso # 0.0 K/mm3 (0.0-0.1) 04/05/20 21:14 Seg Neutrophils % 72.4 % (40.0-70.0) H 04/05/20 21:14 Seg Neutrophils # 6.0 K/mm3 (1.8-7.7) 04/05/20 21:14 Sodium 141 mmol/L (137-145) 04/05/20 21:14 Potassium 3.8 mmol/L (3.6-5.0) 04/05/20 21:14 Chloride 103.1 mmol/L (98-107) 04/05/20 21:14 Carbon Dioxide 28 mmol/L (22-30) 04/05/20 21:14 Anion Gap 14 mmol/L 04/05/20 21:14 BUN 7 mg/dL (7-17) 04/05/20 21:14 Creatinine 0.9 mg/dL (0.7-1.2) 04/05/20 21:14 Estimated GFR > 60 ml/min 04/05/20 21:14 BUN/Creatinine Ratio 8 % 04/05/20 21:14 Glucose 121 mg/dL (65-100) H 04/05/20 21:14 POC Glucose 97 (70-105) 04/05/20 07:00 Hemoglobin A1c 4.6 % (4-6) 04/05/20 21:14 Calcium 10.8 mg/dL (8.4-10.2) H 04/05/20 21:14 Total Bilirubin 0.40 mg/dL (0.1-1.2) 04/05/20 21:14 AST 15 units/L (5-40) 04/05/20 21:14 ALT 18 units/L (7-56) 04/05/20 21:14 Alkaline Phosphatase 110 units/L (35-129) 04/05/20 21:14 Total Protein 7.1 g/dL (6.3-8.2) 04/05/20 21:14 Albumin 4.3 g/dL (3.9-5) 04/05/20 21:14 Albumin/Globulin Ratio 1.5 % 04/05/20 21:14 Triglycerides 113 mg/dL (2-149) 04/05/20 21:14 Cholesterol 178 mg/dL (50-199) 04/05/20 21:14 LDL Cholesterol Direct 85 mg/dL (50-130) 04/05/20 21:14 HDL Cholesterol 79 mg/dL (40-59) H 04/05/20 21:14 Cholesterol/HDL Ratio 2.25 % 04/05/20 21:14 TSH 2.490 mlU/mL (0.270-4.200) 04/05/20 21:14 [place] 0.5 mmol/L (0.0-1.2) 04/06/20 07:48 Last Vital Signs Temp 98.1 F 04/08/20 19:27 Pulse 115 H 04/08/20 19:27 Resp 18 04/08/20 19:27 BP 131/83 04/08/20 19:27 Pulse Ox 98 04/08/20 19:27
[2020-04-09] MEDS ORDERED: WATER FOR INJ Sterile (PF) 10 ML IM ONE ×2 (10:00)
[2020-04-09] MEDS: DOCUSATE SODIUM 100 MG CAP PO SCH ×2 (10:03→21:26)
[2020-04-09] MEDS: PANTOPRAZOLE 40 MG TAB PO SCH (10:03)
[2020-04-09] MEDS: MONTELUKAST 10 MG TAB PO SCH (10:04)
[2020-04-09] MEDS: FERROUS SULFATE 325 MG TAB PO SCH (10:04)
[2020-04-09] MEDS: LORazepam 1 MG TAB PO SCH ×2 (10:05→21:26)
[2020-04-09] MEDS: LITHIUM CARBONATE ER 450 MG TAB PO SCH (10:05)
[2020-04-09] MEDS: LORazepam 2 MG/ML VIAL IM PRN (10:07)
[2020-04-09] MEDS: ZIPRASIDONE MESYLATE 20 MG VIAL IM PRN (10:08)
[2020-04-09] MEDS: ZOLPIDEM 5 MG TAB PO SCH (21:26)
[2020-04-09] MEDS: QUEtiapine 200 MG TAB PO SCH (21:26)
[2020-04-09] MEDS ORDERED: WATER FOR INJ Sterile (PF) 10 ML ONE (21:40)
[2020-04-09] MEDS: ZIPRASIDONE MESYLATE 20 MG VIAL IM SCH (21:44)
[2020-04-10] MEDS: LEVOTHYROXINE 25 MCG TAB PO SCH (05:39)
--- NOTE | 2020-04-10 07:24 | Progress Note ---
Subjective Date of service: 04/10/20 Principal diagnosis: BIPOLAR 1 DISORDER MANIC Subjective Comment: Per Psych Nurse: pt spent her evening in activity room sitting quietly, calm and cooperative, alert and oriented to person, and place, no confusion noted, pt is able to express needs, she asked what medication she was been given; she questioned why she did not get her lithium, instructional writer explained to her that she gets lithium in the morning; she said that she takes lithium at bedtime, instructional writer advise her to let the MD to know, she verbalizes understanding, pt is medication compliant, consumed 100% of bedtime snack, denies si/hi, denies a/v/h, no complaints voiced, no distress noted, will continue to monitor Psych Progress HPI Patient seen this AM, seated in breakfast room, approachable and less disorganized, improved orientation and able to respond to question prompt. I asked patient where her glasses were because she would need it due to her tunneled vision, patient says even when she wears it, her vision still not that good and everyone laughed. Reason for continuing inpatient treatment: Patient responding to treatment and medication changes as observed by this provider and nursing note but not at [facility] yet per family. I will switch from IM geodon to oral PO tomorrow morning. MENTAL STATUS EXAMINATION General Appearance and Behavior: Age appropriate, improved hygiene, wearing appropriate clothes, fair eye contact, cooperative with questioning. Cooperation: cooperative but slighly withdrawn Psychomotor Behavior: Reduced Psychomotor agitation Mood: good Affect and affective range: congruent with mood Thought Process: Circumstitial, Illogical, and Loose associations Thought Content: Illogical, obsessions. Speech: normal volume rate and rythm Intellectual Functioning: Improving cognition Suicidal Ideation: na Homicidal Ideation: na Impulse Control: Impaired Insight and Judgment:Impaired Memory: n/a Attention:, Distractible, Divided attention impaired Orientation: Alert, confused Treatment Plan: Assessment and Plan - Patient Problems (1) Bipolar 1 disorder Current Visit: Yes Status: Acute Seroquel increased to 400 mg Patient on IM geodon 10, will switch to oral tomorrow. Home meds restarted, lithium levels to be rechecked in a week. Patient will be admitted for inpatient psychiatric evaluation, medication adjustment and close monitoring The patient's behavior, mood, sleep and appetite will be closely monitored. Patient will be enrolled in individual and group therapeutic sessions and encouraged to attend. Patient will be provided with a safe and structured environment. Patient's physical health needs will be addressed by the Hospitalist. Hospitalist Consulted Labs including CBC, CMP, Lipid profile and Hemoglobin A1C ordered Social Assessment will be completed and the [place] Department End Finder will work with patient and family to ensure a suitable and safe disposition Medication adjustment will be made as clinically indicated Usual Wellness Sabianist/Preservation: - Start Trazodone 50 mg po QHS - Start Melatonin 5 mg po QHS to promote circadian rhythm The patient agreed on the treatment plan, understood the risk, benefit, alternative treatment, potential consequence of no treatment, and gave informed consent. Physician Certification - Certification Statement Physician Certification Statement: This is an acknowledgement statement that JUNE HUNTLEY is a 54 year old F who requires inpatient psychiatric admission for treatment which could reasonably be expected to improve the patient's condition for Estimated period of time patient will need to remain in the hospital: [3] Plan for post-hospital care: [outpt] Assessment and Plan - Patient Problems (1) Bipolar 1 disorder Current Visit: Yes Status: Acute Medications and Allergies Allergies Allergy/AdvReac Type Severity Reaction Status Date / Time benztropine [From Cogentin] Allergy Unknown Verified 04/04/20 21:45 pseudoephedrine Allergy Unknown Verified 04/04/20 21:45 Antihistamines - Alkylamine AdvReac Unknown Verified 04/04/20 21:45 Home Medications Medication Instructions Recorded Confirmed Last Taken Type Bppxfg-Nhyjxrtw-Cxsg 50-325-40 1 tab PO Q4H PRN 04/04/20 04/04/20 Unknown History Citracal + D Maximum Caplet 1 cap PO BID 04/04/20 04/04/20 Unknown History Docusate Sodium [Colace] 100 mg PO BID 04/04/20 04/04/20 Unknown History Ferrous Sulfate [Iron 325 MG] 325 mg PO DAILY 04/04/20 04/04/20 Unknown History LORazepam [Ativan] 1 mg PO BID 04/04/20 04/04/20 Unknown History Levothyroxine [Synthroid] 25 mcg PO QAM 04/04/20 04/04/20 Unknown History [place] Carbonate [[place] 450 mg PO DAILY 04/04/20 04/04/20 Unknown History Carbonate ER] Loratadine [Allergy] 10 mg PO DAILY 04/04/20 04/04/20 Unknown History Montelukast Sodium 10 mg PO DAILY 04/04/20 04/04/20 Unknown History Pantoprazole [Protonix TAB] 1 tab PO DAILY 04/04/20 04/04/20 Unknown History QUEtiapine [SEROquel] 200 mg PO HS 04/04/20 04/04/20 Unknown History Riboflavin (Vitamin B2) 400 mg PO DAILY 04/04/20 04/04/20 Unknown History SUMAtriptan [Imitrex] 5 mg NS UNK 04/04/20 04/04/20 Unknown History Temazepam [Restoril] 1 cap PO HS PRN 04/04/20 04/04/20 Unknown History Trimethoprim 100 mg PO Q48HR 04/04/20 04/04/20 Unknown History Zolpidem [Ambien] 10 mg PO QHS 04/04/20 04/04/20 Unknown History hydrOXYzine 25 mg PO Q6H PRN 04/04/20 04/04/20 Unknown History Active Meds: Active Medications Docusate Sodium (Colace) 100 mg PO BID [facility] Last Admin: 04/09/20 21:26 Dose: 100 mg Documented by: Ferrous Sulfate (Feosol) 325 mg PO DAILY [facility] Last Admin: 04/09/20 10:04 Dose: 325 mg Documented by: Hydroxyzine Pamoate (Vistaril) 25 mg PO Q6HR PRN PRN Reason: Anxiety Last Admin: 04/05/20 15:19 Dose: 25 mg Documented by: Levothyroxine Sodium (Synthroid) 25 mcg PO DAILY@0600 [facility] Last Admin: 04/10/20 05:39 Dose: 25 mcg Documented by: [place] Carbonate (Lithobid Er) 450 mg PO DAILY [facility] Last Admin: 04/09/20 10:05 Dose: 450 mg Documented by: Lorazepam (Ativan) 1 mg PO BID [facility] Last Admin: 04/09/20 21:26 Dose: 1 mg Documented by: Lorazepam (Ativan) 1 mg IM Q4HR PRN PRN Reason: Agitation Last Admin: 04/09/20 10:07 Dose: 1 mg Documented by: Melatonin (Melatonin) 5 mg PO QHS PRN PRN Reason: Sleep Montelukast Sodium (Singulair) 10 mg PO DAILY [facility] Last Admin: 04/09/20 10:04 Dose: 10 mg Documented by: Pantoprazole Sodium (Protonix) 40 mg PO DAILY [facility] Last Admin: 04/09/20 10:03 Dose: 40 mg Documented by: Quetiapine Fumarate (Seroquel) 400 mg PO QHS [facility] Last Admin: 04/09/20 21:26 Dose: 400 mg Documented by: Sumatriptan Succinate (Imitrex) 50 mg PO Q2H PRN PRN Reason: Migraine Headache Last Admin: 04/08/20 10:12 Dose: 50 mg Documented by: Temazepam (Restoril) 15 mg PO HS PRN PRN Reason: Sleep Ziprasidone (Geodon) 10 mg IM BID [facility] Stop: 04/10/20 10:01 Last Admin: 04/09/20 21:44 Dose: 10 mg Documented by: Zolpidem Tartrate (Ambien) 10 mg PO QHS [facility] Last Admin: 04/09/20 21:26 Dose: 10 mg Documented by: Results - Results Labs/Vitals: Laboratory Last Values WBC 8.3 K/mm3 (4.5-11.0) 04/05/20 21:14 RBC 4.70 M/mm3 (3.65-5.03) 04/05/20 21:14 Hgb 14.5 gm/dl (10.1-14.3) H 04/05/20 21:14 Hct 43.8 % (30.3-42.9) H 04/05/20 21:14 MCV 93 fl (79-97) 04/05/20 21:14 MCH 31 pg (28-32) 04/05/20 21:14 MCHC 33 % (30-34) 04/05/20 21:14 RDW 13.9 % (13.2-15.2) 04/05/20 21:14 Plt Count 210 K/mm3 (140-440) 04/05/20 21:14 Lymph % (Auto) 17.6 % (13.4-35.0) 04/05/20 21:14 [place] % (Auto) 7.5 % (0.0-7.3) H 04/05/20 21:14 Eos % (Auto) 2.2 % (0.0-4.3) 04/05/20 21:14 Baso % (Auto) 0.3 % (0.0-1.8) 04/05/20 21:14 Lymph # 1.5 K/mm3 (1.2-5.4) 04/05/20 21:14 [place] # 0.6 K/mm3 (0.0-0.8) 04/05/20 21:14 Eos # 0.2 K/mm3 (0.0-0.4) 04/05/20 21:14 Baso # 0.0 K/mm3 (0.0-0.1) 04/05/20 21:14 Seg Neutrophils % 72.4 % (40.0-70.0) H 04/05/20 21:14 Seg Neutrophils # 6.0 K/mm3 (1.8-7.7) 04/05/20 21:14 Sodium 141 mmol/L (137-145) 04/05/20 21:14 Potassium 3.8 mmol/L (3.6-5.0) 04/05/20 21:14 Chloride 103.1 mmol/L (98-107) 04/05/20 21:14 Carbon Dioxide 28 mmol/L (22-30) 04/05/20 21:14 Anion Gap 14 mmol/L 04/05/20 21:14 BUN 7 mg/dL (7-17) 04/05/20 21:14 Creatinine 0.9 mg/dL (0.7-1.2) 04/05/20 21:14 Estimated GFR > 60 ml/min 04/05/20 21:14 BUN/Creatinine Ratio 8 % 04/05/20 21:14 Glucose 121 mg/dL (65-100) H 04/05/20 21:14 POC Glucose 97 (70-105) 04/05/20 07:00 Hemoglobin A1c 4.6 % (4-6) 04/05/20 21:14 Calcium 10.8 mg/dL (8.4-10.2) H 04/05/20 21:14 Total Bilirubin 0.40 mg/dL (0.1-1.2) 04/05/20 21:14 AST 15 units/L (5-40) 04/05/20 21:14 ALT 18 units/L (7-56) 04/05/20 21:14 Alkaline Phosphatase 110 units/L (35-129) 04/05/20 21:14 Total Protein 7.1 g/dL (6.3-8.2) 04/05/20 21:14 Albumin 4.3 g/dL (3.9-5) 04/05/20 21:14 Albumin/Globulin Ratio 1.5 % 04/05/20 21:14 Triglycerides 113 mg/dL (2-149) 04/05/20 21:14 Cholesterol 178 mg/dL (50-199) 04/05/20 21:14 LDL Cholesterol Direct 85 mg/dL (50-130) 04/05/20 21:14 HDL Cholesterol 79 mg/dL (40-59) H 04/05/20 21:14 Cholesterol/HDL Ratio 2.25 % 04/05/20 21:14 TSH 2.490 mlU/mL (0.270-4.200) 04/05/20 21:14 [place] 0.5 mmol/L (0.0-1.2) 04/06/20 07:48 Last Vital Signs Temp 98.4 F 04/09/20 20:12 Pulse 107 H 04/09/20 20:12 Resp 18 04/09/20 20:12 BP 130/90 04/09/20 20:12 Pulse Ox 99 04/09/20 20:12
[2020-04-10] MEDS: PANTOPRAZOLE 40 MG TAB PO SCH (10:08)
[2020-04-10] MEDS: ZIPRASIDONE MESYLATE 20 MG VIAL IM SCH (10:09)
[2020-04-10] MEDS: DOCUSATE SODIUM 100 MG CAP PO SCH ×2 (10:09→21:23)
[2020-04-10] MEDS: FERROUS SULFATE 325 MG TAB PO SCH (10:09)
[2020-04-10] MEDS: MONTELUKAST 10 MG TAB PO SCH (10:09)
[2020-04-10] MEDS: LORazepam 1 MG TAB PO SCH ×2 (10:10→21:23)
[2020-04-10] MEDS ORDERED: ZIPRASIDONE MESYLATE 20 MG VIAL IM SCH (20:00)
[2020-04-10] MEDS: QUEtiapine 200 MG TAB PO SCH (21:23)
[2020-04-10] MEDS: ZOLPIDEM 5 MG TAB PO SCH (21:23)
[2020-04-10] MEDS: LITHIUM CARBONATE ER 450 MG TAB PO SCH (21:53)
[2020-04-11] MEDS: LEVOTHYROXINE 25 MCG TAB PO SCH (06:22)
--- NOTE | 2020-04-11 08:18 | Progress Note ---
Subjective Date of service: 04/11/20 Principal diagnosis: BIPOLAR 1 DISORDER MANIC Subjective Comment: During my interview with the patient this morning, she is sitting in the dayroom, awake. She is a/o x 2. She says she feels "fine." She's doesn't recall why she was admitted into the hospital. She denies SI/HI, stating, "not at this time, but I was suicidal some time ago." She denies hallucinations at this time. The patient then starts looking at the t.v smiling, and states, "I don't know if that t.v is talking about me. I think it is." Reason for continuing inpatient treatment: The patient has improved significantly, and is responding well to treatment regimen. She at time shows some paranoia. Will continue to stabilize and plan for a safe discharge. MENTAL STATUS EXAMINATION General Appearance Behavior: cooperative, fidgety Mood: Fine Affect and affective range: congruent with mood Speech: normal pace and tone Thought Process: Circumstantial Thought Content: Suicidal Ideation: Denies Homicidal Ideation: Denies Hallucinations: Denies Delusional: Yes Insight and Judgment: Limited Memory/Cognition: Limited Assessment Bipolar Disorder PLAN Patient will be admitted for inpatient psychiatric evaluation, medication adjustment and close monitoring The patient's behavior, mood, sleep and appetite will be closely monitored. Patient will be enrolled in individual and group therapeutic sessions and encouraged to attend. Patient will be provided with a safe and structured environment. Patient's physical health needs will be addressed by the Hospitalist. Hospitalist Consulted Labs including CBC, CMP, Lipid profile and Hemoglobin A1C ordered Social Assessment will be completed and the Marine Operations Coordinator will work with patient and family to ensure a suitable and safe disposition Medication adjustment will be made as clinically indicated No changes today, restarted on home lithium yesterday Usual Wellness Zoroastrian/Preservation: - Start Trazodone 50 mg po QHS - Start Melatonin 5 mg po QHS to promote circadian rhythm The patient agreed on the treatment plan, understood the risk, benefit, alternative treatment, potential consequence of no treatment, and gave informed consent. Medications and Allergies Allergies Allergy/AdvReac Type Severity Reaction Status Date / Time benztropine [From Cogentin] Allergy Unknown Verified 04/04/20 21:45 pseudoephedrine Allergy Unknown Verified 04/04/20 21:45 Antihistamines - Alkylamine AdvReac Unknown Verified 04/04/20 21:45 Home Medications Medication Instructions Recorded Confirmed Last Taken Type Blgdrm-[id number]-Bctn 50-325-40 1 tab PO Q4H PRN 04/04/20 04/04/20 Unknown History Citracal + D Maximum Caplet 1 cap PO BID 04/04/20 04/04/20 Unknown History Docusate Sodium [Colace] 100 mg PO BID 04/04/20 04/04/20 Unknown History Ferrous Sulfate [Iron 325 MG] 325 mg PO DAILY 04/04/20 04/04/20 Unknown History LORazepam [Ativan] 1 mg PO BID 04/04/20 04/04/20 Unknown History Levothyroxine [Synthroid] 25 mcg PO QAM 04/04/20 04/04/20 Unknown History [place] Carbonate [[place] 450 mg PO DAILY 04/04/20 04/04/20 Unknown History Carbonate ER] Loratadine [Allergy] 10 mg PO DAILY 04/04/20 04/04/20 Unknown History Montelukast Sodium 10 mg PO DAILY 04/04/20 04/04/20 Unknown History Pantoprazole [Protonix TAB] 1 tab PO DAILY 04/04/20 04/04/20 Unknown History QUEtiapine [SEROquel] 200 mg PO HS 04/04/20 04/04/20 Unknown History Riboflavin (Vitamin B2) 400 mg PO DAILY 04/04/20 04/04/20 Unknown History SUMAtriptan [Imitrex] 5 mg NS UNK 04/04/20 04/04/20 Unknown History Temazepam [Restoril] 1 cap PO HS PRN 04/04/20 04/04/20 Unknown History Trimethoprim 100 mg PO Q48HR 04/04/20 04/04/20 Unknown History Zolpidem [Ambien] 10 mg PO QHS 04/04/20 04/04/20 Unknown History hydrOXYzine 25 mg PO Q6H PRN 04/04/20 04/04/20 Unknown History Active Meds: Active Medications Docusate Sodium (Colace) 100 mg PO BID [facility] Last Admin: 04/10/20 21:23 Dose: 100 mg Documented by: Ferrous Sulfate (Feosol) 325 mg PO DAILY [facility] Last Admin: 04/10/20 10:09 Dose: 325 mg Documented by: Hydroxyzine Pamoate (Vistaril) 25 mg PO Q6HR PRN PRN Reason: Anxiety Last Admin: 04/05/20 15:19 Dose: 25 mg Documented by: Levothyroxine Sodium (Synthroid) 25 mcg PO DAILY@0600 [facility] Last Admin: 04/11/20 06:22 Dose: 25 mcg Documented by: [place] Carbonate (Lithobid Er) 450 mg PO QHS [facility] Last Admin: 04/10/20 21:53 Dose: 450 mg Documented by: Lorazepam (Ativan) 1 mg PO BID [facility] Last Admin: 04/10/20 21:23 Dose: 1 mg Documented by: Lorazepam (Ativan) 1 mg IM Q4HR PRN PRN Reason: Agitation Last Admin: 04/09/20 10:07 Dose: 1 mg Documented by: Melatonin (Melatonin) 5 mg PO QHS PRN PRN Reason: Sleep Montelukast Sodium (Singulair) 10 mg PO DAILY [facility] Last Admin: 04/10/20 10:09 Dose: 10 mg Documented by: Pantoprazole Sodium (Protonix) 40 mg PO DAILY [facility] Last Admin: 04/10/20 10:08 Dose: 40 mg Documented by: Quetiapine Fumarate (Seroquel) 400 mg PO QHS [facility] Last Admin: 04/10/20 21:23 Dose: 400 mg Documented by: Sumatriptan Succinate (Imitrex) 50 mg PO Q2H PRN PRN Reason: Migraine Headache Last Admin: 04/08/20 10:12 Dose: 50 mg Documented by: Temazepam (Restoril) 15 mg PO HS PRN PRN Reason: Sleep Ziprasidone (Geodon) 10 mg IM ONCE [facility] Last Admin: 04/10/20 21:29 Dose: 10 mg Documented by: Zolpidem Tartrate (Ambien) 10 mg PO QHS [facility] Last Admin: 04/10/20 21:23 Dose: 10 mg Documented by: Results - Results Labs/Vitals: Laboratory Last Values WBC 8.3 K/mm3 (4.5-11.0) 04/05/20 21:14 RBC 4.70 M/mm3 (3.65-5.03) 04/05/20 21:14 Hgb 14.5 gm/dl (10.1-14.3) H 04/05/20 21:14 Hct 43.8 % (30.3-42.9) H 04/05/20 21:14 MCV 93 fl (79-97) 04/05/20 21:14 MCH 31 pg (28-32) 04/05/20 21:14 MCHC 33 % (30-34) 04/05/20 21:14 RDW 13.9 % (13.2-15.2) 04/05/20 21:14 Plt Count 210 K/mm3 (140-440) 04/05/20 21:14 Lymph % (Auto) 17.6 % (13.4-35.0) 04/05/20 21:14 [place] % (Auto) 7.5 % (0.0-7.3) H 04/05/20 21:14 Eos % (Auto) 2.2 % (0.0-4.3) 04/05/20 21:14 Baso % (Auto) 0.3 % (0.0-1.8) 04/05/20 21:14 Lymph # 1.5 K/mm3 (1.2-5.4) 04/05/20 21:14 [place] # 0.6 K/mm3 (0.0-0.8) 04/05/20 21:14 Eos # 0.2 K/mm3 (0.0-0.4) 04/05/20 21:14 Baso # 0.0 K/mm3 (0.0-0.1) 04/05/20 21:14 Seg Neutrophils % 72.4 % (40.0-70.0) H 04/05/20 21:14 Seg Neutrophils # 6.0 K/mm3 (1.8-7.7) 04/05/20 21:14 Sodium 141 mmol/L (137-145) 04/05/20 21:14 Potassium 3.8 mmol/L (3.6-5.0) 04/05/20 21:14 Chloride 103.1 mmol/L (98-107) 04/05/20 21:14 Carbon Dioxide 28 mmol/L (22-30) 04/05/20 21:14 Anion Gap 14 mmol/L 04/05/20 21:14 BUN 7 mg/dL (7-17) 04/05/20 21:14 Creatinine 0.9 mg/dL (0.7-1.2) 04/05/20 21:14 Estimated GFR > 60 ml/min 04/05/20 21:14 BUN/Creatinine Ratio 8 % 04/05/20 21:14 Glucose 121 mg/dL (65-100) H 04/05/20 21:14 POC Glucose 97 (70-105) 04/05/20 07:00 Hemoglobin A1c 4.6 % (4-6) 04/05/20 21:14 Calcium 10.8 mg/dL (8.4-10.2) H 04/05/20 21:14 Total Bilirubin 0.40 mg/dL (0.1-1.2) 04/05/20 21:14 AST 15 units/L (5-40) 04/05/20 21:14 ALT 18 units/L (7-56) 04/05/20 21:14 Alkaline Phosphatase 110 units/L (35-129) 04/05/20 21:14 Total Protein 7.1 g/dL (6.3-8.2) 04/05/20 21:14 Albumin 4.3 g/dL (3.9-5) 04/05/20 21:14 Albumin/Globulin Ratio 1.5 % 04/05/20 21:14 Triglycerides 113 mg/dL (2-149) 04/05/20 21:14 Cholesterol 178 mg/dL (50-199) 04/05/20 21:14 LDL Cholesterol Direct 85 mg/dL (50-130) 04/05/20 21:14 HDL Cholesterol 79 mg/dL (40-59) H 04/05/20 21:14 Cholesterol/HDL Ratio 2.25 % 04/05/20 21:14 TSH 2.490 mlU/mL (0.270-4.200) 04/05/20 21:14 [place] 0.5 mmol/L (0.0-1.2) 04/06/20 07:48 Last Vital Signs Temp 97.5 F L 04/10/20 19:01 Pulse 121 H 04/10/20 19:01 Resp 22 04/10/20 19:01 BP 122/80 04/10/20 19:01 Pulse Ox 100 04/10/20 19:01
[2020-04-11] MEDS: MONTELUKAST 10 MG TAB PO SCH (10:00)
[2020-04-11] MEDS: LORazepam 1 MG TAB PO SCH ×2 (10:00→22:19)
[2020-04-11] MEDS: FERROUS SULFATE 325 MG TAB PO SCH (10:00)
[2020-04-11] MEDS: PANTOPRAZOLE 40 MG TAB PO SCH (10:00)
[2020-04-11] MEDS: DOCUSATE SODIUM 100 MG CAP PO SCH ×2 (10:00→21:20)
[2020-04-11] MEDS: QUEtiapine 200 MG TAB PO SCH (21:20)
[2020-04-11] MEDS: ZOLPIDEM 5 MG TAB PO SCH (21:21)
[2020-04-11] MEDS: LITHIUM CARBONATE ER 450 MG TAB PO SCH (21:23)
[2020-04-12] MEDS: LEVOTHYROXINE 25 MCG TAB PO SCH (06:30)
--- NOTE | 2020-04-12 08:11 | Progress Note ---
Subjective Date of service: 04/12/20 Principal diagnosis: BIPOLAR 1 DISORDER MANIC Subjective Comment: The patient's medical record was reviewed and the patient's progress was discussed with the nursing staff. The nurse note states the patient received standing in front of the mirror combing her hair. A&OX3. Denies pain, SI or HI. Pt received call from mother and was so excited. No acute distress observed and none reported. During my interview with the patient this morning, she is sitting up in bed, awake. She verbalizes being "sleepy." She makes fair eye contact. She is calm and cooperative. The patient states her mood as "okay." She denies SI/HI or hallucinations of any kind. The patient asks me when was she going home. She becomes tearful and says, "I want to go home. I miss my son." She then says, "he's 16 and he has his license." Reason for continuing inpatient treatment: The patient has improved significantly, and is responding well to treatment regimen. She had a delusional episode yesterday, will continue to stabilize and plan for a safe discharge. MENTAL STATUS EXAMINATION General Appearance Behavior: calm and cooperative Mood: Okay Affect and affective range: Tearful at times Speech: normal pace and tone Thought Process: Goal directed Thought Content: Suicidal Ideation: Denies Homicidal Ideation: Denies Hallucinations: Denies Delusional: None elicited Insight and Judgment: Limited Memory/Cognition: Limited Assessment Bipolar Disorder PLAN Patient will be admitted for inpatient psychiatric evaluation, medication adju stment and close monitoring The patient's behavior, mood, sleep and appetite will be closely monitored. Patient will be enrolled in individual and group therapeutic sessions and encouraged to attend. Patient will be provided with a safe and structured environment. Patient's physical health needs will be addressed by the Hospitalist. Hospitalist Consulted Labs including CBC, CMP, Lipid profile and Hemoglobin A1C ordered Social Assessment will be completed and the Therapeutic Recreation Director will work with patient and family to ensure a suitable and safe disposition Medication adjustment will be made as clinically indicated No changes today Usual Wellness Jainism/Preservation: - Start Trazodone 50 mg po QHS - Start Melatonin 5 mg po QHS to promote circadian rhythm The patient agreed on the treatment plan, understood the risk, benefit, alternative treatment, potential consequence of no treatment, and gave informed consent. Medications and Allergies Allergies Allergy/AdvReac Type Severity Reaction Status Date / Time benztropine [From Cogentin] Allergy Unknown Verified 04/04/20 21:45 pseudoephedrine Allergy Unknown Verified 04/04/20 21:45 Antihistamines - Alkylamine AdvReac Unknown Verified 04/04/20 21:45 Home Medications Medication Instructions Recorded Confirmed Last Taken Type Yxzlhv-Smddmrrh-Yyaz 50-325-40 1 tab PO Q4H PRN 04/04/20 04/04/20 Unknown History Citracal + D Maximum Caplet 1 cap PO BID 04/04/20 04/04/20 Unknown History Docusate Sodium [Colace] 100 mg PO BID 04/04/20 04/04/20 Unknown History Ferrous Sulfate [Iron 325 MG] 325 mg PO DAILY 04/04/20 04/04/20 Unknown History LORazepam [Ativan] 1 mg PO BID 04/04/20 04/04/20 Unknown History Levothyroxine [Synthroid] 25 mcg PO QAM 04/04/20 04/04/20 Unknown History [place] Carbonate [[place] 450 mg PO DAILY 04/04/20 04/04/20 Unknown History Carbonate ER] Loratadine [Allergy] 10 mg PO DAILY 04/04/20 04/04/20 Unknown History Montelukast Sodium 10 mg PO DAILY 04/04/20 04/04/20 Unknown History Pantoprazole [Protonix TAB] 1 tab PO DAILY 04/04/20 04/04/20 Unknown History QUEtiapine [SEROquel] 200 mg PO HS 04/04/20 04/04/20 Unknown History Riboflavin (Vitamin B2) 400 mg PO DAILY 04/04/20 04/04/20 Unknown History SUMAtriptan [Imitrex] 5 mg NS UNK 04/04/20 04/04/20 Unknown History Temazepam [Restoril] 1 cap PO HS PRN 04/04/20 04/04/20 Unknown History Trimethoprim 100 mg PO Q48HR 04/04/20 04/04/20 Unknown History Zolpidem [Ambien] 10 mg PO QHS 04/04/20 04/04/20 Unknown History hydrOXYzine 25 mg PO Q6H PRN 04/04/20 04/04/20 Unknown History Active Meds: Active Medications Docusate Sodium (Colace) 100 mg PO BID [facility] Last Admin: 04/11/20 21:20 Dose: 100 mg Documented by: Ferrous Sulfate (Feosol) 325 mg PO DAILY [facility] Last Admin: 04/11/20 10:00 Dose: 325 mg Documented by: Hydroxyzine Pamoate (Vistaril) 25 mg PO Q6HR PRN PRN Reason: Anxiety Last Admin: 04/05/20 15:19 Dose: 25 mg Documented by: Levothyroxine Sodium (Synthroid) 25 mcg PO DAILY@0600 [facility] Last Admin: 04/12/20 06:30 Dose: 25 mcg Documented by: [place] Carbonate (Lithobid Er) 450 mg PO QHS [facility] Last Admin: 04/11/20 21:23 Dose: 450 mg Documented by: Lorazepam (Ativan) 1 mg PO BID [facility] Last Admin: 04/11/20 22:19 Dose: 1 mg Documented by: Lorazepam (Ativan) 1 mg IM Q4HR PRN PRN Reason: Agitation Last Admin: 04/09/20 10:07 Dose: 1 mg Documented by: Melatonin (Melatonin) 5 mg PO QHS PRN PRN Reason: Sleep Montelukast Sodium (Singulair) 10 mg PO DAILY [facility] Last Admin: 04/11/20 10:00 Dose: 10 mg Documented by: Pantoprazole Sodium (Protonix) 40 mg PO DAILY [facility] Last Admin: 04/11/20 10:00 Dose: 40 mg Documented by: Quetiapine Fumarate (Seroquel) 400 mg PO QHS [facility] Last Admin: 04/11/20 21:20 Dose: 400 mg Documented by: Sumatriptan Succinate (Imitrex) 50 mg PO Q2H PRN PRN Reason: Migraine Headache Last Admin: 04/08/20 10:12 Dose: 50 mg Documented by: Temazepam (Restoril) 15 mg PO HS PRN PRN Reason: Sleep Ziprasidone (Geodon) 10 mg IM ONCE [facility] Last Admin: 04/10/20 21:29 Dose: 10 mg Documented by: Zolpidem Tartrate (Ambien) 10 mg PO QHS [facility] Last Admin: 04/11/20 21:21 Dose: 10 mg Documented by: Results - Results Labs/Vitals: Laboratory Last Values WBC 8.3 K/mm3 (4.5-11.0) 04/05/20 21:14 RBC 4.70 M/mm3 (3.65-5.03) 04/05/20 21:14 Hgb 14.5 gm/dl (10.1-14.3) H 04/05/20 21:14 Hct 43.8 % (30.3-42.9) H 04/05/20 21:14 MCV 93 fl (79-97) 04/05/20 21:14 MCH 31 pg (28-32) 04/05/20 21:14 MCHC 33 % (30-34) 04/05/20 21:14 RDW 13.9 % (13.2-15.2) 04/05/20 21:14 Plt Count 210 K/mm3 (140-440) 04/05/20 21:14 Lymph % (Auto) 17.6 % (13.4-35.0) 04/05/20 21:14 [place] % (Auto) 7.5 % (0.0-7.3) H 04/05/20 21:14 Eos % (Auto) 2.2 % (0.0-4.3) 04/05/20 21:14 Baso % (Auto) 0.3 % (0.0-1.8) 04/05/20 21:14 Lymph # 1.5 K/mm3 (1.2-5.4) 04/05/20 21:14 [place] # 0.6 K/mm3 (0.0-0.8) 04/05/20 21:14 Eos # 0.2 K/mm3 (0.0-0.4) 04/05/20 21:14 Baso # 0.0 K/mm3 (0.0-0.1) 04/05/20 21:14 Seg Neutrophils % 72.4 % (40.0-70.0) H 04/05/20 21:14 Seg Neutrophils # 6.0 K/mm3 (1.8-7.7) 04/05/20 21:14 Sodium 141 mmol/L (137-145) 04/05/20 21:14 Potassium 3.8 mmol/L (3.6-5.0) 04/05/20 21:14 Chloride 103.1 mmol/L (98-107) 04/05/20 21:14 Carbon Dioxide 28 mmol/L (22-30) 04/05/20 21:14 Anion Gap 14 mmol/L 04/05/20 21:14 BUN 7 mg/dL (7-17) 04/05/20 21:14 Creatinine 0.9 mg/dL (0.7-1.2) 04/05/20 21:14 Estimated GFR > 60 ml/min 04/05/20 21:14 BUN/Creatinine Ratio 8 % 04/05/20 21:14 Glucose 121 mg/dL (65-100) H 04/05/20 21:14 POC Glucose 97 (70-105) 04/05/20 07:00 Hemoglobin A1c 4.6 % (4-6) 04/05/20 21:14 Calcium 10.8 mg/dL (8.4-10.2) H 04/05/20 21:14 Total Bilirubin 0.40 mg/dL (0.1-1.2) 04/05/20 21:14 AST 15 units/L (5-40) 04/05/20 21:14 ALT 18 units/L (7-56) 04/05/20 21:14 Alkaline Phosphatase 110 units/L (35-129) 04/05/20 21:14 Total Protein 7.1 g/dL (6.3-8.2) 04/05/20 21:14 Albumin 4.3 g/dL (3.9-5) 04/05/20 21:14 Albumin/Globulin Ratio 1.5 % 04/05/20 21:14 Triglycerides 113 mg/dL (2-149) 04/05/20 21:14 Cholesterol 178 mg/dL (50-199) 04/05/20 21:14 LDL Cholesterol Direct 85 mg/dL (50-130) 04/05/20 21:14 HDL Cholesterol 79 mg/dL (40-59) H 04/05/20 21:14 Cholesterol/HDL Ratio 2.25 % 04/05/20 21:14 TSH 2.490 mlU/mL (0.270-4.200) 04/05/20 21:14 [place] 0.5 mmol/L (0.0-1.2) 04/06/20 07:48 Last Vital Signs Temp 98.2 F 04/11/20 09:11 Pulse 126 H 04/11/20 09:11 Resp 18 04/11/20 09:11 BP 125/76 04/11/20 09:11 Pulse Ox 100 04/11/20 09:11
[2020-04-12] MEDS: LORazepam 1 MG TAB PO SCH ×2 (09:50→21:13)
[2020-04-12] MEDS: DOCUSATE SODIUM 100 MG CAP PO SCH ×2 (09:50→21:13)
[2020-04-12] MEDS: FERROUS SULFATE 325 MG TAB PO SCH (09:50)
[2020-04-12] MEDS: PANTOPRAZOLE 40 MG TAB PO SCH (09:51)
[2020-04-12] MEDS: MONTELUKAST 10 MG TAB PO SCH (09:51)
[2020-04-12] MEDS: SUMAtriptan SUCCINATE 50 MG TAB PO PRN (20:42)
[2020-04-12] MEDS: ZOLPIDEM 5 MG TAB PO SCH (21:12)
[2020-04-12] MEDS: QUEtiapine 200 MG TAB PO SCH (21:13)
[2020-04-12] MEDS: LITHIUM CARBONATE ER 450 MG TAB PO SCH (21:13)
[2020-04-13] MEDS: LEVOTHYROXINE 25 MCG TAB PO SCH (05:35)
--- NOTE | 2020-04-13 08:47 | Progress Note ---
Subjective Date of service: 04/13/20 Principal diagnosis: BIPOLAR 1 DISORDER MANIC Subjective Comment: The patient's medical record was reviewed and the patient's progress was discussed with the nursing staff. The nurse note states this past evening the patient was mildly labile. She sat in the activity room interacting with peers and this functional tester typewriters. Patient asked about going home and explained that the family was without a vehicle and she had to discharge on Tuesday. This functional tester typewriters reassured patient that her social worker clinical would assist with her discharge plans/needs and would see her Tuesday. During my interview with the patient this morning, she is sitting up in bed, awake. She is calm, cooperative and pleasant. The patient is a/o x 2. She says she "slept okay, but kept hearing doors close sometimes." She says she "feels a lot better than before." The patient denies SI/HI or hallucinations of any kind. She says her appetite is "fine." Reason for continuing inpatient treatment: The patient has improved significantly, and is responding well to treatment regimen. Will plan for a safe discharge tomorrow. MENTAL STATUS EXAMINATION General Appearance Behavior: calm and cooperative. Pleasant Mood: "a lot better" Affect and affective range: Congruent with stated mood Speech: normal pace and tone Thought Process: Goal directed Thought Content: Suicidal Ideation: Denies Homicidal Ideation: Denies Hallucinations: Denies Delusional: None elicited Insight and Judgment: Limited Memory/Cognition: Limited Assessment Bipolar Disorder PLAN Patient will be admitted for inpatient psychiatric evaluation, medication adjustment and close monitoring The patient's behavior, mood, sleep and appetite will be closely monitored. Patient will be enrolled in individual and group therapeutic sessions and encouraged to attend. Patient will be provided with a safe and structured environment. Patient's physical health needs will be addressed by the Hospitalist. Hospitalist Consulted Labs including CBC, CMP, Lipid profile and Hemoglobin A1C ordered Social Assessment will be completed and the Assistant Superintendent will work with patient and family to ensure a suitable and safe disposition Medication adjustment will be made as clinically indicated No changes today Usual Wellness Anabaptism/Preservation: - Start Trazodone 50 mg po QHS - Start Melatonin 5 mg po QHS to promote circadian rhythm The patient agreed on the treatment plan, understood the risk, benefit, alternative treatment, potential consequence of no treatment, and gave informed consent. Medications and Allergies Allergies Allergy/AdvReac Type Severity Reaction Status Date / Time benztropine [From Cogentin] Allergy Unknown Verified 04/04/20 21:45 pseudoephedrine Allergy Unknown Verified 04/04/20 21:45 Antihistamines - Alkylamine AdvReac Unknown Verified 04/04/20 21:45 Home Medications Medication Instructions Recorded Confirmed Last Taken Type [id number]-[id number] 50-325-40 1 tab PO Q4H PRN 04/04/20 04/04/20 Unknown History Citracal + D Maximum Caplet 1 cap PO BID 04/04/20 04/04/20 Unknown History Docusate Sodium [Colace] 100 mg PO BID 04/04/20 04/04/20 Unknown History Ferrous Sulfate [Iron 325 MG] 325 mg PO DAILY 04/04/20 04/04/20 Unknown History LORazepam [Ativan] 1 mg PO BID 04/04/20 04/04/20 Unknown History Levothyroxine [Synthroid] 25 mcg PO QAM 04/04/20 04/04/20 Unknown History [place] Carbonate [[place] 450 mg PO DAILY 04/04/20 04/04/20 Unknown History Carbonate ER] Loratadine [Allergy] 10 mg PO DAILY 04/04/20 04/04/20 Unknown History Montelukast Sodium 10 mg PO DAILY 04/04/20 04/04/20 Unknown History Pantoprazole [Protonix TAB] 1 tab PO DAILY 04/04/20 04/04/20 Unknown History QUEtiapine [SEROquel] 200 mg PO HS 04/04/20 04/04/20 Unknown History Riboflavin (Vitamin B2) 400 mg PO DAILY 04/04/20 04/04/20 Unknown History SUMAtriptan [Imitrex] 5 mg NS UNK 04/04/20 04/04/20 Unknown History Temazepam [Restoril] 1 cap PO HS PRN 04/04/20 04/04/20 Unknown History Trimethoprim 100 mg PO Q48HR 04/04/20 04/04/20 Unknown History Zolpidem [Ambien] 10 mg PO QHS 04/04/20 04/04/20 Unknown History hydrOXYzine 25 mg PO Q6H PRN 04/04/20 04/04/20 Unknown History Active Meds: Active Medications Docusate Sodium (Colace) 100 mg PO BID [facility] Last Admin: 04/12/20 21:13 Dose: 100 mg Documented by: Ferrous Sulfate (Feosol) 325 mg PO DAILY [facility] Last Admin: 04/12/20 09:50 Dose: 325 mg Documented by: Hydroxyzine Pamoate (Vistaril) 25 mg PO Q6HR PRN PRN Reason: Anxiety Last Admin: 04/05/20 15:19 Dose: 25 mg Documented by: Levothyroxine Sodium (Synthroid) 25 mcg PO DAILY@0600 [facility] Last Admin: 04/13/20 05:35 Dose: 25 mcg Documented by: [place] Carbonate (Lithobid Er) 450 mg PO QHS [facility] Last Admin: 04/12/20 21:13 Dose: 450 mg Documented by: Lorazepam (Ativan) 1 mg PO BID [facility] Last Admin: 04/12/20 21:13 Dose: 1 mg Documented by: Lorazepam (Ativan) 1 mg IM Q4HR PRN PRN Reason: Agitation Last Admin: 04/09/20 10:07 Dose: 1 mg Documented by: Melatonin (Melatonin) 5 mg PO QHS PRN PRN Reason: Sleep Montelukast Sodium (Singulair) 10 mg PO DAILY [facility] Last Admin: 04/12/20 09:51 Dose: 10 mg Documented by: Pantoprazole Sodium (Protonix) 40 mg PO DAILY [facility] Last Admin: 04/12/20 09:51 Dose: 40 mg Documented by: Quetiapine Fumarate (Seroquel) 400 mg PO QHS [facility] Last Admin: 04/12/20 21:13 Dose: 400 mg Documented by: Sumatriptan Succinate (Imitrex) 50 mg PO Q2H PRN PRN Reason: Migraine Headache Last Admin: 04/12/20 20:42 Dose: 50 mg Documented by: Temazepam (Restoril) 15 mg PO HS PRN PRN Reason: Sleep Ziprasidone (Geodon) 10 mg IM ONCE [facility] Last Admin: 04/10/20 21:29 Dose: 10 mg Documented by: Zolpidem Tartrate (Ambien) 10 mg PO QHS [facility] Last Admin: 04/12/20 21:12 Dose: 10 mg Documented by: Results - Results Labs/Vitals: Laboratory Last Values WBC 8.3 K/mm3 (4.5-11.0) 04/05/20 21:14 RBC 4.70 M/mm3 (3.65-5.03) 04/05/20 21:14 Hgb 14.5 gm/dl (10.1-14.3) H 04/05/20 21:14 Hct 43.8 % (30.3-42.9) H 04/05/20 21:14 MCV 93 fl (79-97) 04/05/20 21:14 MCH 31 pg (28-32) 04/05/20 21:14 MCHC 33 % (30-34) 04/05/20 21:14 RDW 13.9 % (13.2-15.2) 04/05/20 21:14 Plt Count 210 K/mm3 (140-440) 04/05/20 21:14 Lymph % (Auto) 17.6 % (13.4-35.0) 04/05/20 21:14 [place] % (Auto) 7.5 % (0.0-7.3) H 04/05/20 21:14 Eos % (Auto) 2.2 % (0.0-4.3) 04/05/20 21:14 Baso % (Auto) 0.3 % (0.0-1.8) 04/05/20 21:14 Lymph # 1.5 K/mm3 (1.2-5.4) 04/05/20 21:14 [place] # 0.6 K/mm3 (0.0-0.8) 04/05/20 21:14 Eos # 0.2 K/mm3 (0.0-0.4) 04/05/20 21:14 Baso # 0.0 K/mm3 (0.0-0.1) 04/05/20 21:14 Seg Neutrophils % 72.4 % (40.0-70.0) H 04/05/20 21:14 Seg Neutrophils # 6.0 K/mm3 (1.8-7.7) 04/05/20 21:14 Sodium 141 mmol/L (137-145) 04/05/20 21:14 Potassium 3.8 mmol/L (3.6-5.0) 04/05/20 21:14 Chloride 103.1 mmol/L (98-107) 04/05/20 21:14 Carbon Dioxide 28 mmol/L (22-30) 04/05/20 21:14 Anion Gap 14 mmol/L 04/05/20 21:14 BUN 7 mg/dL (7-17) 04/05/20 21:14 Creatinine 0.9 mg/dL (0.7-1.2) 04/05/20 21:14 Estimated GFR > 60 ml/min 04/05/20 21:14 BUN/Creatinine Ratio 8 % 04/05/20 21:14 Glucose 121 mg/dL (65-100) H 04/05/20 21:14 POC Glucose 97 (70-105) 04/05/20 07:00 Hemoglobin A1c 4.6 % (4-6) 04/05/20 21:14 Calcium 10.8 mg/dL (8.4-10.2) H 04/05/20 21:14 Total Bilirubin 0.40 mg/dL (0.1-1.2) 04/05/20 21:14 AST 15 units/L (5-40) 04/05/20 21:14 ALT 18 units/L (7-56) 04/05/20 21:14 Alkaline Phosphatase 110 units/L (35-129) 04/05/20 21:14 Total Protein 7.1 g/dL (6.3-8.2) 04/05/20 21:14 Albumin 4.3 g/dL (3.9-5) 04/05/20 21:14 Albumin/Globulin Ratio 1.5 % 04/05/20 21:14 Triglycerides 113 mg/dL (2-149) 04/05/20 21:14 Cholesterol 178 mg/dL (50-199) 04/05/20 21:14 LDL Cholesterol Direct 85 mg/dL (50-130) 04/05/20 21:14 HDL Cholesterol 79 mg/dL (40-59) H 04/05/20 21:14 Cholesterol/HDL Ratio 2.25 % 04/05/20 21:14 TSH 2.490 mlU/mL (0.270-4.200) 04/05/20 21:14 [place] 0.5 mmol/L (0.0-1.2) 04/06/20 07:48 Last Vital Signs Temp 98.1 F 04/12/20 22:00 Pulse 118 H 04/12/20 22:00 Resp 18 04/12/20 22:00 BP 133/84 04/12/20 22:00 Pulse Ox 97 04/12/20 22:00
[2020-04-13] MEDS: LORazepam 1 MG TAB PO SCH ×2 (09:36→21:06)
[2020-04-13] MEDS: PANTOPRAZOLE 40 MG TAB PO SCH (09:36)
[2020-04-13] MEDS: MONTELUKAST 10 MG TAB PO SCH (09:36)
[2020-04-13] MEDS: FERROUS SULFATE 325 MG TAB PO SCH (09:36)
[2020-04-13] MEDS: DOCUSATE SODIUM 100 MG CAP PO SCH ×2 (09:36→21:06)
[2020-04-13] MEDS: SUMAtriptan SUCCINATE 50 MG TAB PO PRN (17:56)
[2020-04-13] MEDS: ZOLPIDEM 5 MG TAB PO SCH (21:06)
[2020-04-13] MEDS: LITHIUM CARBONATE ER 450 MG TAB PO SCH (21:06)
[2020-04-13] MEDS: QUEtiapine 200 MG TAB PO SCH (21:06)
[2020-04-14] MEDS: LEVOTHYROXINE 25 MCG TAB PO SCH (06:03)
[2020-04-14 07:22] VITALS: BP 104/79
--- NOTE | 2020-04-14 07:32 | Discharge Summary ---
Providers - Providers Date of Admission: 04/04/20 23:38 Date of discharge: 04/14/20 Attending physician: LINDSEY LINDSAY MD 04/04/20 21:02 Consult to Physician [CONS] Routine Comment: Consulting Provider: MING DELEON Physician Instructions: Reason For Exam: Medical management [facility] Hospital[facility] Condition: Stable Hospital course: The patient was provided inpatient psychiatric treatment with safe and supportive care, medication adjustment, adverse effect monitoring, medical evaluations, medical treatments, assessment and psycho-education. The patient's mood, cognition, behavior, moral support are improved and stabilized. St the time of discharge, the patient had no endangering behavior and no debilitating adverse effects. The patient agreed on potential consequences of no treatment and gave informed consent. Disposition: - TO HOME OR SELFCARE Time spent for discharge: 35 Allergies/Adverse Reactions: Allergies benztropine [From Cogentin] Allergy (Verified 04/04/20 21:45) Unknown pseudoephedrine Allergy (Verified 04/04/20 21:45) Unknown Antihistamines - Alkylamine Adverse Reaction (Verified 04/04/20 21:45) Unknown Vital Signs: Last Vital Signs Temp 99.6 F 04/14/20 07:05 Pulse 109 H 04/14/20 07:05 Resp 20 04/14/20 07:05 BP 104/79 04/14/20 07:05 Pulse Ox 100 04/14/20 07:05 Last Lab: Laboratory Last Values WBC 8.3 K/mm3 (4.5-11.0) 04/05/20 21:14 RBC 4.70 M/mm3 (3.65-5.03) 04/05/20 21:14 Hgb 14.5 gm/dl (10.1-14.3) H 04/05/20 21:14 Hct 43.8 % (30.3-42.9) H 04/05/20 21:14 MCV 93 fl (79-97) 04/05/20 21:14 MCH 31 pg (28-32) 04/05/20 21:14 MCHC 33 % (30-34) 04/05/20 21:14 RDW 13.9 % (13.2-15.2) 04/05/20 21:14 Plt Count 210 K/mm3 (140-440) 04/05/20 21:14 Lymph % (Auto) 17.6 % (13.4-35.0) 04/05/20 21:14 [place] % (Auto) 7.5 % (0.0-7.3) H 04/05/20 21:14 Eos % (Auto) 2.2 % (0.0-4.3) 04/05/20 21:14 Baso % (Auto) 0.3 % (0.0-1.8) 04/05/20 21:14 Lymph # 1.5 K/mm3 (1.2-5.4) 04/05/20 21:14 [place] # 0.6 K/mm3 (0.0-0.8) 04/05/20 21:14 Eos # 0.2 K/mm3 (0.0-0.4) 04/05/20 21:14 Baso # 0.0 K/mm3 (0.0-0.1) 04/05/20 21:14 Seg Neutrophils % 72.4 % (40.0-70.0) H 04/05/20 21:14 Seg Neutrophils # 6.0 K/mm3 (1.8-7.7) 04/05/20 21:14 Sodium 141 mmol/L (137-145) 04/05/20 21:14 Potassium 3.8 mmol/L (3.6-5.0) 04/05/20 21:14 Chloride 103.1 mmol/L (98-107) 04/05/20 21:14 Carbon Dioxide 28 mmol/L (22-30) 04/05/20 21:14 Anion Gap 14 mmol/L 04/05/20 21:14 BUN 7 mg/dL (7-17) 04/05/20 21:14 Creatinine 0.9 mg/dL (0.7-1.2) 04/05/20 21:14 Estimated GFR > 60 ml/min 04/05/20 21:14 BUN/Creatinine Ratio 8 % 04/05/20 21:14 Glucose 121 mg/dL (65-100) H 04/05/20 21:14 POC Glucose 97 (70-105) 04/05/20 07:00 Hemoglobin A1c 4.6 % (4-6) 04/05/20 21:14 Calcium 10.8 mg/dL (8.4-10.2) H 04/05/20 21:14 Total Bilirubin 0.40 mg/dL (0.1-1.2) 04/05/20 21:14 AST 15 units/L (5-40) 04/05/20 21:14 ALT 18 units/L (7-56) 04/05/20 21:14 Alkaline Phosphatase 110 units/L (35-129) 04/05/20 21:14 Total Protein 7.1 g/dL (6.3-8.2) 04/05/20 21:14 Albumin 4.3 g/dL (3.9-5) 04/05/20 21:14 Albumin/Globulin Ratio 1.5 % 04/05/20 21:14 Triglycerides 113 mg/dL (2-149) 04/05/20 21:14 Cholesterol 178 mg/dL (50-199) 04/05/20 21:14 LDL Cholesterol Direct 85 mg/dL (50-130) 04/05/20 21:14 HDL Cholesterol 79 mg/dL (40-59) H 04/05/20 21:14 Cholesterol/HDL Ratio 2.25 % 04/05/20 21:14 TSH 2.490 mlU/mL (0.270-4.200) 04/05/20 21:14 [place] 0.5 mmol/L (0.0-1.2) 04/06/20 07:48 Core Measure Documentation - Palliative Care Palliative Care/ Comfort Measures: Not Applicable - Core Measures Any of the following diagnoses?: none Exam - Constitutional Vitals: Temp Pulse Resp BP Pulse Ox 99.6 F 109 H 20 104/79 100 04/14/20 07:05 04/14/20 07:05 04/14/20 07:05 04/14/20 07:05 04/14/20 07:05 General appearance: Present: no acute distress - EENT Eyes: Present: PERRL, EOM intact ENT: hearing intact, clear oral mucosa - Neck Neck: Present: supple, normal ROM - Respiratory Respiratory effort: normal Plan Activity: advance as tolerated Weight Bearing Status: Weight Bear as Tolerated Care Plan Goals: Maintain good and stable mental health Plan of Treatment: The patient should be compliant with medications, not to use drugs, and not to drink alcohol. The patient understands that if suicidal ideas, homicidal ideas or any endangering feeling arise, the patient should seek assistance including, but not limited to crisis hotline, and emergency room. Assessment: Bipolar The patient calm, cooperative, lucid, and expresses no SI/HI or hallucinations of any kind at time of discharge. Follow up with: KATE GAITAN MD [Primary Care Provider] - 7 Days Prescriptions: LORazepam [Ativan] 1 mg PO BID #60 tablet
[2020-04-14] MEDS: DOCUSATE SODIUM 100 MG CAP PO SCH (09:31)
[2020-04-14] MEDS: PANTOPRAZOLE 40 MG TAB PO SCH (09:31)
[2020-04-14] MEDS: LORazepam 1 MG TAB PO SCH (09:31)
[2020-04-14] MEDS: FERROUS SULFATE 325 MG TAB PO SCH (09:31)
[2020-04-14] MEDS: MONTELUKAST 10 MG TAB PO SCH (09:31)
== END 2020-04-14 11:52 | disposition home or self-care (01) | DRG 885 ==
LOC: UNDOADMIN 18:54 → 3A 18:54 → 5A 23:38
PROVIDERS: ADMIT Psychiatry & Neurology Psychiatry; ATTEND Psychiatry & Neurology Psychiatry
DX: F31.2 Bipolar disorder, current episode manic severe with psychotic features (principal); F41.9 Anxiety disorder, unspecified; G40.909 Epilepsy, unspecified, not intractable, without status epilepticus; E03.9 Hypothyroidism, unspecified; Z88.8 Allergy status to other drugs, medicaments and biological substances; Z79.899 Other long term (current) drug therapy
CPT/HCPCS: 36415; 80053; 80061; 80178; 82962; 83036; 84443; 85025; G0378; J2060; J3486; Q0177